=== PATIENT | female | born 1965 | race Caucasian/White ===

== ENCOUNTER 2016-07-07 13:32 | Inpatient (IN) | payer MEDICAID, OTHER ==
--- NOTE | 2016-07-07 14:54 | ED ---
Psych HPI - General Chief Complaint: Psychiatric Symptoms Stated Complaint: Mental Health Eval Time Seen by Provider: 07/07/16 13:48 Source: patient, family, RN notes reviewed Mode of arrival: ambulatory - History of Present Illness Initial Comments: This patient is a 50-year-old woman brought in by her mother to be evaluated for psychiatric issues. Patient's mother states that the patient has been telling her that everything in the house has been poisoned. She feels that she is in danger being there. Patient does deny suicidal or homicidal ideation. MD Complaint: other -: week(s) Associated Psychiatric Symptoms: delusions History of same: Yes Quality: getting worse Improves With: none Worsens With: none - Related Data Home Medications Medication Instructions Recorded Confirmed Albuterol Nebulized [Ventolin 2.5 mg INHALATION RT-QID PRN 11/23/13 07/08/16 Nebulized] Albuterol Sulfate [Ventolin HFA] 2 puff INHALATION RT-Q6H PRN 11/23/13 07/08/16 metFORMIN HCL [Glucophage] 500 mg PO DAILY 11/23/13 07/08/16 Artificial Tears-Hypromellose 1 drops BOTH EYES TID PRN 11/25/15 07/08/16 [Artificial Tear Drops] Ergocalciferol [Vitamin D2] 50,000 unit PO Q28D 11/25/15 07/08/16 ALPRAZolam [Xanax] 0.25 mg PO BID PRN 06/16/16 07/08/16 Atorvastatin [Lipitor] 40 mg PO HS 06/16/16 07/08/16 Beclomethasone Dipropionate [Qvar 2 puff INHALATION RT-BID 06/16/16 07/08/16 80 mcg] Levothyroxine Sodium [Synthroid] 100 mcg PO DAILY 06/16/16 07/08/16 amLODIPine [Norvasc] 2.5 mg PO DAILY 06/16/16 07/08/16 DULoxetine HCL [Cymbalta] 60 mg PO DAILY 06/27/16 07/08/16 Fluticasone Nasal [place] [Flonase 1 spray EA NOSTRIL DAILY PRN 06/27/16 07/08/16 Nasal [place]] Loratadine [Claritin] 10 mg PO DAILY PRN 06/27/16 07/08/16 QUEtiapine [SEROquel] 50 mg PO HS 07/07/16 07/08/16 Allergies Allergy/AdvReac Type Severity Reaction Status Date / Time ciprofloxacin HCl Allergy Unknown Verified 07/08/16 00:44 [From Cipro] prednisone Allergy Unknown Verified 07/08/16 00:44 sulfamethoxazole Allergy Unknown Verified 07/08/16 00:44 [From Bactrim] trimethoprim [From Bactrim] Allergy Unknown Verified 07/08/16 00:44 Review of Systems ROS Statement: Those systems with pertinent positive or pertinent negative responses have been documented in the HPI. ROS Other: All systems not noted in ROS Statement are negative. Constitutional: Denies: fever Respiratory: Denies: cough, dyspnea Cardiovascular: Denies: chest pain Gastrointestinal: Denies: abdominal pain, vomiting, diarrhea Genitourinary: Denies: dysuria Musculoskeletal: Denies: back pain Skin: Denies: rash Neurological: Denies: headache Psychiatric: Reports: other (Delusional thought content) Past Medical History Past Medical History: Asthma, Diabetes Mellitus, Hyperlipidemia, Hypertension History of Any Multi-Drug Resistant Organisms: None Reported Past Surgical History: Cholecystectomy, Hernia Repair, Hysterectomy Additional Past Surgical History / Comment(s): hiatal hernia Past Psychological History: Anxiety, Depression, Panic Disorder Smoking Status: Never smoker Past Alcohol Use History: None Reported Additional Past Alcohol Use History / Comment(s): pt does not use etoh or illicit drugs Past Drug Use History: None Reported General Exam Limitations: no limitations General appearance: alert, in no apparent distress Head exam: Present: atraumatic, normocephalic Eye exam: Present: normal appearance Respiratory exam: Present: normal lung sounds bilaterally. Absent: respiratory distress, wheezes, rales, rhonchi, stridor Cardiovascular Exam: Present: regular rate, normal rhythm, normal heart sounds. Absent: systolic murmur, diastolic murmur, rubs, gallop GI/Abdominal exam: Present: soft. Absent: tenderness, guarding, rebound Extremities exam: Absent: pedal edema, calf tenderness Neurological exam: Present: alert, normal gait Psychiatric exam: Present: normal affect, normal mood Skin exam: Present: warm, dry, intact, normal color. Absent: rash Course Vital Signs 07/07/16 13:44 Temperature 98.1 F Pulse Rate 99 Respiratory 18 Rate Blood Pressure 116/76 O2 Sat by Pulse 99 Oximetry Medical Decision Making - Lab Data Result diagrams: 07/07/16 18:28 07/07/16 18:28 Lab Results 07/07/16 07/07/16 Range/Units 18:28 18:28 WBC 13.6 H (3.8-10.6) k/uL RBC 4.37 (3.80-5.40) m/uL Hgb 12.3 (11.4-16.0) gm/dL Hct 38.3 (34.0-46.0) % MCV 87.6 (80.0-100.0) fL MCH 28.2 (25.0-35.0) pg MCHC 32.2 (31.0-37.0) g/dL RDW 13.3 (11.5-15.5) % Plt Count 381 (150-450) k/uL Neutrophils % 73 % Lymphocytes % 21 % Monocytes % 5 % Eosinophils % 1 % Basophils % 0 % Neutrophils # 9.9 H (1.3-7.7) k/uL Lymphocytes # 2.8 (1.0-4.8) k/uL Monocytes # 0.6 (0-1.0) k/uL Eosinophils # 0.1 (0-0.7) k/uL Basophils # 0.0 (0-0.2) k/uL Sodium 142 (137-145) mmol/L Potassium 4.9 (3.5-5.1) mmol/L Chloride 103 (98-107) mmol/L Carbon Dioxide 27 (22-30) mmol/L Anion Gap 12 mmol/L BUN 20 H (7-17) mg/dL Creatinine 1.00 (0.52-1.04) mg/dL Est GFR (MDRD) Af Amer >60 (>60 ml/min/1.73 sqM) Est GFR (MDRD) Non-Af 59 (>60 ml/min/1.73 sqM) Glucose 92 (74-99) mg/dL Calcium 11.2 H (8.4-10.2) mg/dL TSH 0.048 L (0.465-4.680) mIU/L Free T4 1.41 (0.78-2.19) ng/dL Disposition Clinical Impression: Psychosis, Hyperthyroidism Disposition: ADMITTED IP TO THIS [facility] Condition: Poor
[2016-07-07 18:38] LABS: Basophils % (A) 0 %; CH 28.4; CHCM 32.6; Eosinophils # (A) 0.1 k/uL (0-0.7); Eosinophils % (A) 1 %; HCT 38.3 % (34.0-46.0); HDW 2.49; HGB 12.3 gm/dL (11.4-16.0); Luc # (Auto) 0.14; Luc % (Auto) 1; Lymphocytes # (A) 2.8 k/uL (1.0-4.8); Lymphocytes % (A) 21 %; MCH 28.2 pg (25.0-35.0); MCHC 32.2 g/dL (31.0-37.0); MCV 87.6 fL (80.0-100.0); Monocytes # (A) 0.6 k/uL (0-1.0); Monocytes % (A) 5 %; Neutrophils # (A) 9.9 k/uL (1.3-7.7); Neutrophils % (A) 73 %; RBC 4.37 m/uL (3.80-5.40); RDW 13.3 % (11.5-15.5); WBC 13.6 k/uL (3.8-10.6); WBC (Perox) 12.78
[2016-07-07 19:10] LABS: Anion Gap 12 mmol/L; Blood Urea Nitrogen 20 mg/dL (7-17); Calcium 11.2 mg/dL (8.4-10.2); Carbon Dioxide 27 mmol/L (22-30); Chloride 103 mmol/L (98-107); Glucose 92 mg/dL (74-99); Non-African American GFR(MDRD) 59 (>60 ml/min/1.73 sqM); Potassium 4.9 mmol/L (3.5-5.1); Sodium 142 mmol/L (137-145)
[2016-07-07] MEDS ORDERED: ZIPRASIDONE 20 MG VIAL IM PRN (22:57)
[2016-07-07] MEDS ORDERED: MAG HYDROX/AL HYDROX/SIMETH 30 ML CUP PO PRN (22:57)
[2016-07-07] MEDS ORDERED: MAGNESIUM HYDROXIDE 2,400 MG/10 ML CUP PO PRN (22:57)
[2016-07-07] MEDS ORDERED: ACETAMINOPHEN TAB 325 MG TAB PO PRN (22:57)
[2016-07-07] MEDS ORDERED: LORazepam 1 MG TAB PO PRN (23:01)
[2016-07-07] MEDS ORDERED: ALBUTEROL NEBULIZED 2.5 MG/3 ML INHALATION PRN (23:40)
[2016-07-08] MEDS ORDERED: ALBUTEROL NEBULIZED 2.5 MG/3 ML INHALATION SCH (08:00)
[2016-07-08] MEDS: amLODIPine 2.5 MG TAB PO SCH (08:05)
[2016-07-08] MEDS: metFORMIN 500 MG TAB PO SCH (08:05)
[2016-07-08 09:31] LABS: Basophils % (A) 0 %; CH 27.6; CHCM 31.7; Eosinophils # (A) 0.1 k/uL (0-0.7); Eosinophils % (A) 0 %; HCT 38.6 % (34.0-46.0); HDW 2.43; HGB 12.2 gm/dL (11.4-16.0); Luc # (Auto) 0.26; Luc % (Auto) 2; Lymphocytes % (A) 14 %; MCH 27.7 pg (25.0-35.0); MCHC 31.6 g/dL (31.0-37.0); MCV 87.5 fL (80.0-100.0); Mean Platelet Volume 6.6; Monocytes # (A) 0.6 k/uL (0-1.0); Monocytes % (A) 4 %; Neutrophils # (A) 11.1 k/uL (1.3-7.7); Neutrophils % (A) 79 %; RBC 4.41 m/uL (3.80-5.40); RDW 13.1 % (11.5-15.5); WBC 14.1 k/uL (3.8-10.6)
[2016-07-08 09:35] LABS: ALT 44 U/L (9-52); AST 31 U/L (14-36); Alkaline Phosphatase 143 U/L (38-126); Anion Gap 19 mmol/L; Bilirubin, Delta 0.4 mg/dL (0.0-0.2); Blood Urea Nitrogen 20 mg/dL (7-17); Calcium 11.1 mg/dL (8.4-10.2); Carbon Dioxide 24 mmol/L (22-30); Chloride 102 mmol/L (98-107); Glucose 122 mg/dL (74-99); Non-African American GFR(MDRD) >60 (>60 ml/min/1.73 sqM); Potassium 4.1 mmol/L (3.5-5.1); Sodium 145 mmol/L (137-145); Total Bilirubin 0.8 mg/dL (0.2-1.3); Total Protein 8.3 g/dL (6.3-8.2)
--- NOTE | 2016-07-08 11:26 | P.HP ---
Psychiatric H&P - . History & Physical: Allergies Allergy/AdvReac Type Severity Reaction Status Date / Time ciprofloxacin HCl Allergy Unknown Verified 07/08/16 00:44 [From Cipro] prednisone Allergy Unknown Verified 07/08/16 00:44 sulfamethoxazole Allergy Unknown Verified 07/08/16 00:44 [From Bactrim] trimethoprim [From Bactrim] Allergy Unknown Verified 07/08/16 00:44 Vital Signs Temp 98.2 F 07/08/16 06:48 Pulse 108 H 07/08/16 08:13 Resp 16 07/08/16 08:13 BP 129/89 07/08/16 08:13 Pulse Ox 99 07/07/16 13:44 Laboratory Last Values WBC 14.1 k/uL (3.8-10.6) H 07/08/16 08:58 RBC 4.41 m/uL (3.80-5.40) 07/08/16 08:58 Hgb 12.2 gm/dL (11.4-16.0) 07/08/16 08:58 Hct 38.6 % (34.0-46.0) 07/08/16 08:58 MCV 87.5 fL (80.0-100.0) 07/08/16 08:58 MCH 27.7 pg (25.0-35.0) 07/08/16 08:58 MCHC 31.6 g/dL (31.0-37.0) 07/08/16 08:58 RDW 13.1 % (11.5-15.5) 07/08/16 08:58 Plt Count 434 k/uL (150-450) 07/08/16 08:58 Neutrophils % 79 % 07/08/16 08:58 Lymphocytes % 14 % 07/08/16 08:58 Monocytes % 4 % 07/08/16 08:58 Eosinophils % 0 % 07/08/16 08:58 Basophils % 0 % 07/08/16 08:58 Neutrophils # 11.1 k/uL (1.3-7.7) H 07/08/16 08:58 Lymphocytes # 2.0 k/uL (1.0-4.8) 07/08/16 08:58 Monocytes # 0.6 k/uL (0-1.0) 07/08/16 08:58 Eosinophils # 0.1 k/uL (0-0.7) 07/08/16 08:58 Basophils # 0.0 k/uL (0-0.2) 07/08/16 08:58 Sodium 145 mmol/L (137-145) 07/08/16 08:58 Potassium 4.1 mmol/L (3.5-5.1) 07/08/16 08:58 Chloride 102 mmol/L (98-107) 07/08/16 08:58 Carbon Dioxide 24 mmol/L (22-30) 07/08/16 08:58 Anion Gap 19 mmol/L 07/08/16 08:58 BUN 20 mg/dL (7-17) H 07/08/16 08:58 Creatinine 0.91 mg/dL (0.52-1.04) 07/08/16 08:58 Est GFR (MDRD) Af Amer >60 (>60 ml/min/1.73 sqM) 07/08/16 08:58 Est GFR (MDRD) Non-Af >60 (>60 ml/min/1.73 sqM) 07/08/16 08:58 Glucose 122 mg/dL (74-99) H 07/08/16 08:58 Calcium 11.1 mg/dL (8.4-10.2) H 07/08/16 08:58 Total Bilirubin 0.8 mg/dL (0.2-1.3) 07/08/16 08:58 Conjugated Bilirubin 0.0 mg/dL (0.0-0.3) 07/08/16 08:58 Unconjugated Bilirubin 0.4 mg/dL (0.0-1.1) 07/08/16 08:58 Delta Bilirubin 0.4 mg/dL (0.0-0.2) H 07/08/16 08:58 AST 31 U/L (14-36) 07/08/16 08:58 ALT 44 U/L (9-52) 07/08/16 08:58 Alkaline Phosphatase 143 U/L (38-126) H 07/08/16 08:58 Total Protein 8.3 g/dL (6.3-8.2) H 07/08/16 08:58 Albumin 4.7 g/dL (3.5-5.0) 07/08/16 08:58 TSH 0.052 mIU/L (0.465-4.680) L 07/08/16 08:58 Free T4 1.41 ng/dL (0.78-2.19) 07/07/16 18:28 07/08/16 10:45 Psychiatric admission notes. Identification data and reason for hospitalization. Gila craven is a 50-year-old white single female who was admitted to mental health unit following her evaluation in the emergency department where she was brought by her mother requesting psychiatric evaluation. According to mother patient has been telling that everything in the house has been poisoned and filed being in danger there. History of present illness. Information obtainable from the patient is somewhat limited as she seems to be guarded most of the time. She told me that she is here because her mother wanted her to be admitted, and also stated that she wanted to be away from home so that she can sort out things, but the family would want to go back home. Patient stated that she has been feeling quite depressed lately as she is lonely and has no children, , or family. On the other hand she states that she will never live with her mother and does not want to think about life without her mother. Though she was supposed to be under psychiatric care through [facility], decided not to go there anymore because she was upset with an employee there. When inquired about her mother's statement of poisoned and the house she did not want to discuss that not much of any psychiatric symptoms other than what she indicated. Patient stated that she is having no appetite and had been crying most of the time while at home feeling sad and depressed. On direct inquiry she did not indicate having any suicidal thoughts or plans. Past psychiatric history. Her records indicate that she was hospitalized here in 2007 for a psychotic breakdown. She had another admission in November 2013 she was quite depressed and suicidal. 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 Though she has been depressed on and off there is no history of any suicidal attempts. In the history of her admission of 2013 she seems to have showing significant erratic behavior over the breakup with a boyfriend. Substance abuse history. None Medical history. Patient has history of asthma, hyperlipidemia, hypertension, and diabetes mellitus. Also has history of hysterectomy and states that she is concerned that she cannot have any children because of that. Personal history. Patient is younger of 2 siblings, and has a sister 2 years older than her. 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 She lives with her mother with whom she seems to be pathologically attached. Parents got when she was 5 years old and though she did not have much to do with her father while growing up, missed became very much and he when he was around 50s. Though patient dated many people never trusted anybody enough to them. She was very much in love with one gentleman but broke with him when she found that he went on skinny dipping with another girl. Though in high school she was quite active and had many friends, she does not have any social life or friends now. 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 Patient is on Social Security income. Family history. Patient's mother has history of depression and was hospitalized here. So also her maternal aunt. One of her maternal uncle committed suicide. Patient is not aware of any other family history of psychiatric problem. ALLERGIES. Ciprofloxacin, penicillin, prednisone. And Bactrim. Current medications. Her home medications listed are metformin 500 mg daily, Norvasc 2.5 mg daily, Seroquel 50 mg at bedtime, Claritin 10 mg daily when necessary, Synthroid 100 g daily, Flonase nasal spray daily when necessary, with vitamin D to 50,000 unit daily 28 days, Cymbalta 60 mg daily, beclomethasone inhalation twice a day, Lipitor 40 mg at bedtime, albuterol inhalation every 6 hours when necessary and Xanax 0.25 mg twice a day when necessary. Mental status examination. Patient is an average built single female who appears older than her stated age she is completely edentulous, and though she has dentures seems to be not regularly using it. Patient was dressed in hospital gown and readily came for the evaluation, however appeared to be rather guarded. Her attention and concentration could be aroused and sustained for adequate length of time and patient maintained good eye contact. There was no significant psychomotor disturbance. Patient became quite tearful and crying when talking about her mother and of years of what she would do when her mother passes away and stated that she does not want to think about it at all. Does not speak spontaneously. However responds to questions relevantly when she does, at other times quite evasive and guarded. Speech is normal in rate and rhythm and volume. Thought process also fairly normal. Patient seems to have paranoid delusions. At one point she acknowledged that she has auditory hallucination and then later changed her mind and said "no", nor would want to talk about it. She is oriented to time place and person. Her memory functions has far as could be tested seem to be fairly intact as well as remote, and recent events. Did not want to participate in evaluation of immediate memory not general information. Appears to be somewhat limited in her insight and judgment. Intelligence. Probably below average. Next Strengths. Supportive mother and a place to live. Social Security income. Weaknesses. Long history of psychiatric problem. Dependent on mother. Noncompliant with treatment recommendations. Formulation. 50-year-old single white female currently on Social Security income with history of prior admissions for depression, being admitted as patient has been depressed as well as expressing paranoid ideation, and per patient she wanted to be away from home for a few days. Acknowledges that she wants treatment for depression. Diagnoses. [place] I. Rule out Bipolar 2 disorder with psychotic features. Major depressive disorder recurrent with psychotic features. [place] II. Dependent personality. [place] III. History of asthma, hyperlipidemia, hypertension, diabetes mellitus, and hypothyroidism. [place] IV. Moderate severity [place] V. 25. Treatment plans. Patient will be on a diabetic diet and will be on close observation for any unpredictable behavior. We'll have medical evaluation and follow-up as needed. Psychosocial history. And will see patient on a daily basis for ongoing evaluation and appropriate adjustment of medication as well as reality oriented supportive discussions. Encourage patient to participate in all milieu based treatment activities. She is currently on Tylenol, Maalox, and milk of magnesia on a when necessary basis and albuterol inhalation 4 times a day when necessary and Ativan by mouth 1 mg every 8 hours when necessary. For agitation or psychotic symptoms patient would be on Geodon 20 mg IM twice a day when necessary. Will continue her Cymbalta 60 mg daily and increase Seroquel to100 mg at at bedtime and Synthroid 100 g daily. She also will continue her metformin 500 mg daily and Norvasc 2.5 mg daily. Once stabilized psychiatrically patient will be advised as to need for continued outpatient care and recommend alternate plan as she does not want to go to [facility]. I'm not sure as to who has been prescribing her psychotropic medications. Prognosis. Fair with active treatment. 07/08/16 11:19
[2016-07-08 13:28] LABS: Appearance,Urine Cloudy (Clear); Bacteria,Urine Moderate /hpf; Bilirubin,Urine Negative (Negative); Glucose,Urine (UA) Negative (Negative); Ketones,Urine Negative (Negative); Leukocyte Esterase,Urine Large (Negative); Mucus,Urine Occasional /hpf; Nitrite,Urine Negative (Negative); PH, Urine 5.5 (5.0-8.0); Particle Count 4285; Protein,Urine Negative (Negative); RBC,Urine 4 /hpf (0-5); Specific Gravity,Urine 1.007 (1.001-1.035); Squamous Epithelial Cell,Urine 21 /hpf (0-4); UA Billing (MACRO vs. MICRO) MICRO; Urobilinogen,Urine <2.0 mg/dL (<2.0); WBC,Urine 26 /hpf (0-5)
[2016-07-08 13:37] LABS: Hemoglobin A1C 5.8 % (4.2-6.1)
[2016-07-08] MEDS: ALBUTEROL INHALER 60 PUFF/8 GM INHALER INHALATION PRN ×2 (13:59→18:56)
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
[2016-07-08] MEDS: ATORVASTATIN 40 MG TAB PO SCH (21:04)
[2016-07-09] MEDS: LEVOTHYROXINE 100 MCG TAB PO SCH (06:57)
[2016-07-09] MEDS: metFORMIN 500 MG TAB PO SCH (07:54)
[2016-07-09] MEDS: DULoxetine HCL 60 MG CAPSULE.DR PO SCH (09:13)
[2016-07-09] MEDS: amLODIPine 2.5 MG TAB PO SCH (09:13)
[2016-07-09] MEDS: ALBUTEROL INHALER 60 PUFF/8 GM INHALER INHALATION PRN (12:36)
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
[2016-07-09] MEDS: ATORVASTATIN 40 MG TAB PO SCH ×2 (22:38→22:40)
[2016-07-10] MEDS: LEVOTHYROXINE 100 MCG TAB PO SCH (06:21)
[2016-07-10] MEDS: metFORMIN 500 MG TAB PO SCH (09:27)
[2016-07-10] MEDS: amLODIPine 2.5 MG TAB PO SCH (09:27)
[2016-07-10 09:29] VITALS: RESP 16
[2016-07-10] MEDS: DULoxetine HCL 60 MG CAPSULE.DR PO SCH (10:50)
--- NOTE | 2016-07-10 14:06 | P.PN ---
Subjective Psychiatric progress notes. Patient who has expressed significant paranoid delusional thinking yesterday was started on Prolixin however I was informed that patient had refused to take all of her medications. When seen today she indicated that medications make her feel different and hence she did not want to. Explained to patient as to need for medication compliance and if she continues to refuse we may have to seek court order to ensure that she is taking her medications. Patient became rather tearful at this suggestions patient remains withdrawn and attempts to participate in certain group activities. Patient did not sleep very well last night. Mental status. Patient is an average built female with adequate grooming trends and dressed in her own clothes. Has some degree of psychomotor retardation. Comes readily for the evaluation and speaks in a low tone but does not show any abnormality in her speech or thought process other than being slow. Patient has paranoid delusions and her affect is relatively flat. Depressed and anxious mood. Limited in insight and judgment. Since the only medication available in liquid form being Haldol started 5 mg a.m. and 10 mg at bedtime. Objective - Vital Signs Vital signs: Vital Signs Temp 97.9 F 07/10/16 07:07 Pulse 91 07/10/16 11:40 Resp 16 07/10/16 11:40 BP 127/84 07/10/16 11:40 Pulse Ox 99 07/07/16 13:44 Intake & Output 07/09/16 07/10/16 07/10/16 18:59 06:59 18:59 Weight 68 kg - Labs CBC & Chem 7: 07/08/16 08:58 07/08/16 08:58 Labs: Microbiology - Last 24 Hours (Table) 07/09/16 11:52 Urine Culture - Final Urine,Clean Catch
[2016-07-10] MEDS: HALOPERIDOL ORAL SOLN 10 MG/5 ML CUP PO SCH (20:36)
[2016-07-10] MEDS: ATORVASTATIN 40 MG TAB PO SCH (20:36)
[2016-07-11 06:27] LABS: Glucose,Whole Blood 104 mg/dL (75-99)
[2016-07-11] MEDS: LEVOTHYROXINE 100 MCG TAB PO SCH (07:23)
[2016-07-11] MEDS: DULoxetine HCL 60 MG CAPSULE.DR PO SCH (08:08)
[2016-07-11] MEDS: metFORMIN 500 MG TAB PO SCH (08:08)
[2016-07-11] MEDS: HALOPERIDOL ORAL SOLN 10 MG/5 ML CUP PO SCH ×2 (08:08→20:51)
[2016-07-11] MEDS: BENZTROPINE MESYLATE 0.5 MG TAB PO SCH (08:08)
[2016-07-11] MEDS: amLODIPine 2.5 MG TAB PO SCH (08:08)
[2016-07-11] MEDS: ALBUTEROL INHALER 60 PUFF/8 GM INHALER INHALATION PRN ×4 (08:34→20:42)
[2016-07-11 11:52] LABS: Glucose,Whole Blood 97 mg/dL (75-99)
--- NOTE | 2016-07-11 15:18 | P.PN ---
Subjective Psychiatric progress notes. Patient after discussion with him yesterday decided to be compliant with medication and reports that she was able to sleep better and is feeling better today and without any adverse effects. Patient indicated that she was afraid that the medication would change her in some ways, however since he was feeling better decided to continue to take them. She had started attending the milieu based treatment activities and seems to be more appropriately responding. Also discussed with her the possible benefits of being on a long-acting injectable medication about which she had some questions and seemed to be willing though she is afraid of the pain it could cause according to her. Though her mother had brought the dentures she has not started using it yet. Mental status. Patient is said average built female who is dressed in her own clothes, but her grooming habits could be some degree better. Patient seemed to have an indifferent attitude about her looks and grooming. Patient comes readily for the evaluation and did not show any significant psychomotor retardation the disposition she had before. Attention and concentration aroused and sustained. Answers to questions relevantly, coherently but briefly. Acknowledge that her hallucinatory experiences have been improving, so also the paranoid thinking. Affect becoming more appropriate. Also seem to be having improved insight and judgment. Continue current treatment plans. Objective - Vital Signs Vital signs: Vital Signs Temp 98.2 F 07/11/16 06:42 Pulse 121 H 07/11/16 08:06 Resp 16 07/11/16 08:06 BP 111/72 07/11/16 08:06 Pulse Ox 99 07/07/16 13:44 - Labs CBC & Chem 7: 07/08/16 08:58 07/08/16 08:58 Labs: Abnormal Lab Results - Last 24 Hours (Table) 07/11/16 Range/Units 06:26 POC Glucose (mg/dL) 104 H (75-99) mg/dL Microbiology - Last 24 Hours (Table) 07/09/16 11:52 Urine Culture - Final Urine,Clean Catch
[2016-07-11] MEDS: ATORVASTATIN 40 MG TAB PO SCH (20:52)
[2016-07-12] MEDS: LEVOTHYROXINE 100 MCG TAB PO SCH (06:16)
[2016-07-12 06:49] LABS: Glucose,Whole Blood 85 mg/dL (75-99)
[2016-07-12] MEDS: DULoxetine HCL 60 MG CAPSULE.DR PO SCH (08:13)
[2016-07-12] MEDS: metFORMIN 500 MG TAB PO SCH (08:13)
[2016-07-12] MEDS: BENZTROPINE MESYLATE 0.5 MG TAB PO SCH (08:13)
[2016-07-12] MEDS: amLODIPine 2.5 MG TAB PO SCH (08:13)
[2016-07-12] MEDS: HALOPERIDOL ORAL SOLN 10 MG/5 ML CUP PO SCH ×2 (08:14→21:10)
[2016-07-12] MEDS: ALBUTEROL INHALER 60 PUFF/8 GM INHALER INHALATION PRN ×2 (10:59→19:01)
--- NOTE | 2016-07-12 16:26 | P.PN ---
Subjective Psychiatric progress notes. From a psychiatric point of view patient seems to be making a definitive improvement though she still shows tendency to be somewhat isolative. However she has been regular with her participation in treatment activities as well as compliance with medications. Patient is somewhat anxious to be home and acknowledges at times having some conflict with her mother. States that in future if it happens she would go and stay with sister for a couple of days. Discussed eating on Prolixin Decanoate which she agrees and will order this for tomorrow. Mental status examination. Patient's grooming habits still requires some improvement, however she readily comes for evaluation trusting her own clothes and maintaining reasonable eye contact. Somewhat slow in her activities. Speech and thought process not showing any significant abnormality other than they are some degree slow. Her paranoid delusions seem to have cleared affect becoming more appropriate. Denies any depression at present. Sleep has been good. Seems to have fair degree of insight as to need for treatment. Continue current treatment plans. Objective - Vital Signs Vital signs: Vital Signs Temp 98.2 F 07/12/16 06:27 Pulse 112 H 07/12/16 08:11 Resp 16 07/12/16 08:11 BP 115/65 07/12/16 08:11 Pulse Ox 99 07/07/16 13:44 - Labs CBC & Chem 7: 07/08/16 08:58 07/08/16 08:58
[2016-07-12] MEDS: ATORVASTATIN 40 MG TAB PO SCH (21:29)
[2016-07-13] MEDS: LEVOTHYROXINE 100 MCG TAB PO SCH (06:37)
[2016-07-13 06:44] VITALS: TEMP 98.1
[2016-07-13 06:48] LABS: Glucose,Whole Blood 85 mg/dL (75-99)
[2016-07-13] MEDS: amLODIPine 2.5 MG TAB PO SCH (08:15)
[2016-07-13] MEDS: BENZTROPINE MESYLATE 0.5 MG TAB PO SCH (08:15)
[2016-07-13] MEDS: DULoxetine HCL 60 MG CAPSULE.DR PO SCH (08:16)
[2016-07-13] MEDS: HALOPERIDOL ORAL SOLN 10 MG/5 ML CUP PO SCH (08:17)
[2016-07-13] MEDS: metFORMIN 500 MG TAB PO SCH (08:17)
[2016-07-13 08:21] VITALS: BP 113/71; PULSE 113
[2016-07-13] MEDS: HALOPERIDOL DECANOATE 50 MG/ML 1 ML VIAL IM STA ×2 (10:04→10:25)
--- NOTE | 2016-07-13 12:26 | P.DS ---
Providers Date of admission: 07/07/16 20:07 Attending physician: Kel Boone MD Psychiatric discharge summary. Identification data and reason for hospitalization. Gila craven a 50-year-old single white female admitted to mental health unit following her evaluation in the emergency department where she was brought by her mother requesting psychiatric evaluation and treatment per mother patient has been telling that everything in the house has been poisoned and afraid to be at home. Patient was on voluntary status. History of present illness and mental status at the time of admission please refer to the dictated admission notes. Admitting diagnoses. [place] I. Rule out bipolar 2 disorder with psychotic features. Major depressive disorder recurrent with psychotic features. [place] II dependent personality. [place] III. History of asthma, hyperlipidemia, hypertension, diabetes mellitus, and hypothyroidism. [place] IV. Moderate severity. [place] V. 25 Course during hospitalization. Patient was on a diabetic diet and was on close observation for any unpredictable behavior. Medical evaluation provided by Dr. Lamar and there was no additional diagnoses other than mentioned. Initially patient remained quite withdrawn and continued to have paranoid ideations though she felt safer being on the unit that at home. However patient refused to be on any medication claiming that it may make her feel different. Patient was advised as to the options of waiting for court adjudication or to be compliant with medication and she chose to be compliant. She was on Tylenol, Maalox, and milk of magnesia on a when necessary basis. IM Geodon 20 mg twice a day when necessary if agitated. She continued the following medication of Cymbalta 60 mg daily, Seroquel 100 mg at bedtime, and Synthroid 100 g daily. She was also on metformin 500 mg daily and Norvasc 2.5 mg daily. Also she was on Cogentin 0.5 mg daily, Lipitor 40 mg at bedtime, and Ventolin inhaler 4 times a day when necessary. In view of her continued paranoid trends and likelihood of noncompliance following discharge she was placed on Haldol 5 mg a.m. and 10 mg at bedtime which was subsequently changed to 10 mg at bedtime along with Ativan 0.5 mg at bedtime. Patient was on Claritin 10 mg daily on the outside this was continued on a when necessary basis. She was given IM Haldol Decanoate 50 mg and will continue this every 4 weeks. Patient seemed to have developed adequate degree of improvement becoming more appropriate and the delusions have cleared. Her depression also significantly improved and patient was scheduled for discharge for outpatient follow-up with [facility]. Mental status at the time of discharge. Patient is an average built single white female who is somewhat indifferent towards her grooming trends with uncombed hair and certain degree of isolation. She started using her dentures which seemed to make some difference in her appearance. Patient is cooperative in the sense she comes readily for the evaluation and maintains good eye contact and responds appropriately, all the same with certain degree of restriction of affect. Speech and thought process remains low. Paranoid delusions have cleared. No hallucinatory experience. Self-care, eating and sleeping habits improved. Patient is agreeable as to need for treatment and willing to be compliant and to that extent there is improvement in insight and judgment. Discharge diagnoses. [place] I. Major depressive disorder recurrent with psychotic features. [place] II. Dependent personality. [place] III. History of asthma, hyperlipidemia, hypertension, diabetes mellitus, and hypothyroidism. [place] IV. Moderate severity. [place] V. 40. Post hospital plan. Patient will be on diabetic diet and has appointment [facility] on[facility] and her discharge medications are. Albuterol inhaler 4 times a day when necessary Lipitor 40 mg at bedtime. Cogentin 0.5 mg daily. Cymbalta 60 mg daily. Haldol 10 mg at bedtime. Ativan 0.5 mg at bedtime. Synthroid 100 g daily. Claritin 10 mg daily when necessary. Norvasc 2.5 mg daily. Metformin 500 mg with breakfast daily. Prognosis. Fair with treatment. Risk assessment. Patient is free of any depressive feelings or psychotic symptoms and has not shown any dangerousness to self or others. Consults: 07/07/16 22:57 Consult Physician Routine Consulting Provider: Dale Lamar Consult Reason/Comments: mendical management Do you want consulting provider notified?: Yes, Notify in am Primary care physician: Dale Lamar Patient Condition at Discharge: Poor Plan - Discharge Summary New Discharge Prescriptions: Albuterol Inhaler [Ventolin Hfa Inhaler] 2 puff INHALATION RT-QID PRN #1 puff PRN Reason: Shortness Of Breath Or Wheezing Atorvastatin [Lipitor] 40 mg PO HS #30 tab Benztropine Mesylate [Cogentin] 0.5 mg PO DAILY #30 tab DULoxetine HCL [Cymbalta] 60 mg PO DAILY #30 capsule. Haloperidol [Haldol] 10 mg PO HS #60 tab LORazepam [Ativan] 0.5 mg PO HS #30 tab Levothyroxine Sodium [Synthroid] 100 mcg PO DAILY@0630 #30 tab Loratadine [Claritin] 10 mg PO DAILY PRN #30 tab PRN Reason: Allergy Symptoms amLODIPine [Norvasc] 2.5 mg PO DAILY #30 tab metFORMIN HCL [Glucophage] 500 mg PO W/BRKFST #30 tab Discharge Medication List Albuterol Nebulized [Ventolin Nebulized] 2.5 mg INHALATION RT-QID PRN 11/23/13 [ History] Albuterol Sulfate [Ventolin HFA] 2 puff INHALATION RT-Q6H PRN 11/23/13 [History] metFORMIN HCL [Glucophage] 500 mg PO DAILY 11/23/13 [History] Artificial Tears-Hypromellose [Artificial Tear Drops] 1 drops BOTH EYES TID PRN 11/25/15 [History] Ergocalciferol [Vitamin D2 (DRISDOL)] 50,000 unit PO Q28D 11/25/15 [History] Atorvastatin [Lipitor] 40 mg PO HS 06/16/16 [History] Beclomethasone Dipropionate [Qvar 80 mcg] 2 puff INHALATION RT-BID 06/16/16 [ History] Levothyroxine Sodium [Synthroid] 100 mcg PO DAILY 06/16/16 [History] amLODIPine [Norvasc] 2.5 mg PO DAILY 06/16/16 [History] DULoxetine HCL [Cymbalta] 60 mg PO DAILY 06/27/16 [History] Fluticasone Nasal [place] [Flonase Nasal [place]] 1 spray EA NOSTRIL DAILY PRN 06/27 [History] Albuterol Inhaler [Ventolin Hfa Inhaler] 2 puff INHALATION RT-QID PRN #1 puff [Rx] Atorvastatin [Lipitor] 40 mg PO HS #30 tab 07/13/16 [Rx] Benztropine Mesylate [Cogentin] 0.5 mg PO DAILY #30 tab 07/13/16 [Rx] DULoxetine HCL [Cymbalta] 60 mg PO DAILY #30 capsule. 07/13/16 [Rx] Haloperidol [Haldol] 10 mg PO HS #60 tab 07/13/16 [Rx] LORazepam [Ativan] 0.5 mg PO HS #30 tab 07/13/16 [Rx] Levothyroxine Sodium [Synthroid] 100 mcg PO DAILY@0630 #30 tab 07/13/16 [Rx] Loratadine [Claritin] 10 mg PO DAILY PRN #30 tab 07/13/16 [Rx] amLODIPine [Norvasc] 2.5 mg PO DAILY #30 tab 07/13/16 [Rx] metFORMIN HCL [Glucophage] 500 mg PO W/BRKFST #30 tab 07/13/16 [Rx] Follow up Appointment(s)/Referral(s): [facility] [Other] - 08/10/16 11:00 am (injection) Dale Lamar MD [Primary Care Provider] - 1 Week Patient Instructions/Handouts: Depression (DC), Suicide Prevention for Adults ( DC) Activity/Diet/Wound Care/Special Instructions: No alcohol or street drugs. Call the crisis line or your care provider if symptoms worsen Crisis line no. . Regular diet. Activity as tolerated.
[2016-07-13] MEDS ORDERED: LORazepam 0.5 MG TAB PO SCH (21:00)
[2016-07-13] MEDS ORDERED: HALOPERIDOL 5 MG TAB PO SCH (21:00)
== END 2016-07-13 12:50 | disposition home or self-care (01) | DRG 885 ==
LOC: EC 13:32 → 3MHU 20:07
PROVIDERS: ADMIT Psychiatry & Neurology Psychiatry; ATTEND Psychiatry & Neurology Psychiatry
DX: F33.3 Major depressive disorder, recurrent, severe with psychotic symptoms (principal); E11.9 Type 2 diabetes mellitus without complications; I10 Essential (primary) hypertension; E05.90 Thyrotoxicosis, unspecified without thyrotoxic crisis or storm; E78.5 Hyperlipidemia, unspecified; F41.0 Panic disorder [episodic paroxysmal anxiety]; J45.909 Unspecified asthma, uncomplicated; Z88.1 Allergy status to other antibiotic agents; Z88.2 Allergy status to sulfonamides; Z81.8 Family history of other mental and behavioral disorders
CPT/HCPCS: 36415; 80048; 80053; 80301; 81001; 81025; 82075; 82248; 83036; 84439; 84443; 85025; 87086; 94640; 99285

== ENCOUNTER 2016-10-23 09:27 | Emergency (ER) | payer OTHER ==
[2016-10-23 09:34] VITALS: PULSE 98; TEMP 97.1
[2016-10-23] MEDS ORDERED: ONDANSETRON ODT 4 MG TAB PO STA (09:53)
[2016-10-23] MEDS ORDERED: FAMOTIDINE 20 MG TAB PO STA (09:53)
--- NOTE | 2016-10-23 10:14 | ED ---
General Adult HPI - General Chief complaint: Recheck/Abnormal Lab/Rx Stated complaint: sick Time Seen by Provider: 10/23/16 09:35 Source: patient, RN notes reviewed Mode of arrival: ambulatory Limitations: no limitations - History of Present Illness Initial comments: 51-year-old female presents emergency Department chief complaint sinus congestion runny nose for the last 2 weeks. Patient states she stays a lot mild cough. Patient states she has a large amount of posterior drainage upsetting her stomach. She has no abdominal pain. Patient states that she's not taking any valq-voh-rrpqfeo cough and cold medications though she states she has seasonal ALLERGIES and which she normally should be taking something. Patient denies fever, chills, ear pain, headache or dizziness. Denies any neck pain or neck stiffness. Patient offers no other complaints. - Related Data Home Medications Medication Instructions Recorded Confirmed Albuterol Nebulized [Ventolin 2.5 mg INHALATION RT-QID PRN 11/23/13 10/23/16 Nebulized] Albuterol Sulfate [Ventolin HFA] 2 puff INHALATION RT-Q6H PRN 11/23/13 10/23/16 Ergocalciferol [Vitamin D2 50,000 unit PO Q28D 11/25/15 10/23/16 (DRISDOL)] Atorvastatin [Lipitor] 40 mg PO HS 06/16/16 10/23/16 Beclomethasone Dipropionate [Qvar 1 puff INHALATION RT-QID PRN 06/16/16 10/23/16 80 mcg] Levothyroxine Sodium [Synthroid] 100 mcg PO DAILY 06/16/16 10/23/16 amLODIPine [Norvasc] 2.5 mg PO DAILY 06/16/16 10/23/16 DULoxetine HCL [Cymbalta] 60 mg PO DAILY 06/27/16 10/23/16 Fluticasone Nasal [place] [Flonase 1 spray EA NOSTRIL DAILY PRN 06/27/16 10/23/16 Nasal [place]] Aspirin EC [Ecotrin Low Dose] 81 mg PO DAILY 10/23/16 10/23/16 Benztropine Mesylate [Cogentin] 1 mg PO BID 10/23/16 10/23/16 Fluticasone Nasal [place] [Flonase 1 spray EA NOSTRIL BID PRN 10/23/16 10/23/16 Nasal [place]] Ibuprofen [Motrin] 800 mg PO Q6H PRN 10/23/16 10/23/16 LORazepam [Ativan] 0.5 mg PO DAILY 10/23/16 10/23/16 Loperamide [Imodium] 2 - 4 mg PO QID PRN 10/23/16 10/23/16 Mupirocin 2% Oint [Bactroban 2% 1 applic TOPICAL TID PRN 10/23/16 10/23/16 Oint] Previous Rx's Medication Instructions Recorded Haloperidol [Haldol] 10 mg PO HS #60 tab 07/13/16 Loratadine [Claritin] 10 mg PO DAILY PRN #30 tab 07/13/16 metFORMIN HCL [Glucophage] 500 mg PO W/BRKFST #30 tab 07/13/16 Loratadine 10 mg PO DAILY #20 tablet 10/23/16 Ondansetron Odt [Zofran Odt] 4 mg PO Q8HR PRN #10 tab 10/23/16 Allergies Allergy/AdvReac Type Severity Reaction Status Date / Time ciprofloxacin HCl Allergy Unknown Verified 10/23/16 10:22 [From Cipro] prednisone Allergy Unknown Verified 10/23/16 10:22 sulfamethoxazole Allergy Unknown Verified 10/23/16 10:22 [From Bactrim] trimethoprim [From Bactrim] Allergy Unknown Verified 10/23/16 10:22 Review of Systems ROS Statement: Those systems with pertinent positive or pertinent negative responses have been documented in the HPI. ROS Other: All systems not noted in ROS Statement are negative. Past Medical History Past Medical History: Asthma, Diabetes Mellitus, Hyperlipidemia, Hypertension History of Any Multi-Drug Resistant Organisms: None Reported Past Surgical History: Cholecystectomy, Hernia Repair, Hysterectomy Additional Past Surgical History / Comment(s): hiatal hernia Past Psychological History: Anxiety, Depression, Panic Disorder Smoking Status: Never smoker Past Alcohol Use History: None Reported Additional Past Alcohol Use History / Comment(s): pt does not use etoh or illicit drugs Past Drug Use History: None Reported General Exam Limitations: no limitations General appearance: alert, in no apparent distress Head exam: Present: atraumatic, normocephalic, normal inspection Eye exam: Present: normal appearance, PERRL, EOMI. Absent: scleral icterus, conjunctival injection, periorbital swelling ENT exam: Present: mucous membranes moist, TM's normal bilaterally, normal external ear exam. Absent: normal oropharynx (Postnasal drainage) Neck exam: Present: normal inspection, full ROM. Absent: tenderness, meningismus, lymphadenopathy Respiratory exam: Present: normal lung sounds bilaterally. Absent: respiratory distress, wheezes, rales, rhonchi, stridor Cardiovascular Exam: Present: regular rate, normal rhythm, normal heart sounds. Absent: systolic murmur, diastolic murmur, rubs, gallop, clicks Skin exam: Present: warm, dry, intact, normal color. Absent: rash Course Vital Signs 10/23/16 09:31 Temperature 97.1 F L Pulse Rate 98 Respiratory 20 Rate Blood Pressure 128/80 O2 Sat by Pulse 100 Oximetry Medical Decision Making - Medical Decision Making 51-year-old female presented emergency department for congestion and postnasal drainage nausea. Patient does feel better after Zofran. Patient chest x-ray shows no acute abnormality. Patient's symptoms are of URI, ALLERGY. Patient be given loratadine. Patient has formally is at home. Patient also given Zofran for her nausea. Return parameters were discussed. Disposition Clinical Impression: Post-nasal drainage, URI (upper respiratory infection), Environmental allergies Disposition: HOME SELF-CARE Condition: Stable Instructions: Upper Respiratory Infection (ED) Additional Instructions: Please return to the Emergency Department if symptoms worsen or any other concerns. Prescriptions: Loratadine 10 mg PO DAILY #20 tablet Ondansetron Odt [Zofran Odt] 4 mg PO Q8HR PRN #10 tab PRN Reason: Nausea Time of Disposition: 11:12
--- NOTE | 2016-10-23 10:26 | XR ---
EXAMINATION TYPE: XR chest 2V DATE OF EXAM: 10/23/2016 10:04 AM COMPARISON: 06/27/2016 HISTORY: 51-year-old female with cough and chest pain TECHNIQUE: PA and lateral views FINDINGS: The cardiomediastinal silhouette, aorta, and pulmonary vasculature are within normal limits. Lungs an d pleural spaces are clear. IMPRESSION: No acute cardiopulmonary process.
[2016-10-23 11:21] VITALS: BP 143/84; RESP 16
== END 2016-10-23 11:21 | disposition home or self-care (01) ==
LOC: EC 09:27
DX: T78.49XA Other allergy, initial encounter (principal); J06.9 Acute upper respiratory infection, unspecified; R11.0 Nausea; J45.909 Unspecified asthma, uncomplicated; E11.9 Type 2 diabetes mellitus without complications; E78.5 Hyperlipidemia, unspecified; I10 Essential (primary) hypertension; F41.0 Panic disorder [episodic paroxysmal anxiety]; F32.9 Major depressive disorder, single episode, unspecified; Z79.82 Long term (current) use of aspirin; Z79.899 Other long term (current) drug therapy; Z88.1 Allergy status to other antibiotic agents; Z88.2 Allergy status to sulfonamides; Z88.8 Allergy status to other drugs, medicaments and biological substances
CPT/HCPCS: 71020; 99283

== ENCOUNTER 2016-10-24 19:06 | Emergency (ER) | payer OTHER ==
[2016-10-24] MEDS ORDERED: SODIUM CHLORIDE 0.9% 1,000 ML IV STA (20:35)
[2016-10-24] MEDS ORDERED: ONDANSETRON 4 MG/2 ML VIAL IVP STA (20:35)
[2016-10-24] MEDS ORDERED: FAMOTIDINE 20 MG/2 ML VIAL IV STA (20:36)
--- NOTE | 2016-10-24 20:59 | ED ---
General Adult HPI - General Chief complaint: Nausea/Vomiting/Diarrhea Stated complaint: HTN and vomiting Time Seen by Provider: 10/24/16 20:32 Source: patient, RN notes reviewed Mode of arrival: wheelchair Limitations: no limitations - History of Present Illness Initial comments: Patient 51-year-old female who presents emergency room today with a chief complaint of symptoms of nausea vomiting, diarrhea over the last 4 days. Does admit that symptoms started 4 days ago. Denies any signs of blood in the stool or emesis. Mrs. some abdominal cramping. She denies any other associated symptoms or complaints. Patient denies any recent fever, chills, shortness of breath, chest pain, back pain, numbness or tingling, dysuria or hematuria, constipation, headaches or visual changes, or any other complaints. - Related Data Home Medications Medication Instructions Recorded Confirmed Albuterol Nebulized [Ventolin 2.5 mg INHALATION RT-QID PRN 11/23/13 10/24/16 Nebulized] Albuterol Sulfate [Ventolin HFA] 2 puff INHALATION RT-Q6H PRN 11/23/13 10/24/16 Ergocalciferol [Vitamin D2 50,000 unit PO Q28D 11/25/15 10/24/16 (DRISDOL)] Atorvastatin [Lipitor] 40 mg PO HS 06/16/16 10/24/16 Beclomethasone Dipropionate [Qvar 1 puff INHALATION RT-QID PRN 06/16/16 10/24/16 80 mcg] Levothyroxine Sodium [Synthroid] 100 mcg PO DAILY 06/16/16 10/24/16 amLODIPine [Norvasc] 2.5 mg PO DAILY 06/16/16 10/24/16 DULoxetine HCL [Cymbalta] 60 mg PO DAILY 06/27/16 10/24/16 Aspirin EC [Ecotrin Low Dose] 81 mg PO DAILY 10/23/16 10/24/16 Benztropine Mesylate [Cogentin] 1 mg PO BID 10/23/16 10/24/16 Fluticasone Nasal [place] [Flonase 1 spray EA NOSTRIL BID PRN 10/23/16 10/24/16 Nasal [place]] Ibuprofen [Motrin] 800 mg PO Q6H PRN 10/23/16 10/24/16 LORazepam [Ativan] 0.5 mg PO DAILY 10/23/16 10/24/16 Loperamide [Imodium] 2 - 4 mg PO QID PRN 10/23/16 10/24/16 Mupirocin 2% Oint [Bactroban 2% 1 applic TOPICAL TID PRN 10/23/16 10/24/16 Oint] Previous Rx's Medication Instructions Recorded Haloperidol [Haldol] 10 mg PO HS #60 tab 07/13/16 Loratadine [Claritin] 10 mg PO DAILY PRN #30 tab 07/13/16 metFORMIN HCL [Glucophage] 500 mg PO W/BRKFST #30 tab 07/13/16 Loratadine 10 mg PO DAILY #20 tablet 10/23/16 Ondansetron Odt [Zofran Odt] 4 mg PO Q8HR PRN #10 tab 10/23/16 Nitrofurantoin Monohyd/M-Cryst 100 mg PO Q12HR #14 cap 10/24/16 [Macrobid] Allergies Allergy/AdvReac Type Severity Reaction Status Date / Time ciprofloxacin HCl Allergy Unknown Verified 10/24/16 20:53 [From Cipro] prednisone Allergy Unknown Verified 10/24/16 20:53 sulfamethoxazole Allergy Unknown Verified 10/24/16 20:53 [From Bactrim] trimethoprim [From Bactrim] Allergy Unknown Verified 10/24/16 20:53 Review of Systems ROS Statement: Those systems with pertinent positive or pertinent negative responses have been documented in the HPI. ROS Other: All systems not noted in ROS Statement are negative. Past Medical History Past Medical History: Asthma, Diabetes Mellitus, Hyperlipidemia, Hypertension History of Any Multi-Drug Resistant Organisms: None Reported Past Surgical History: Cholecystectomy, Hernia Repair, Hysterectomy Additional Past Surgical History / Comment(s): hiatal hernia Past Psychological History: Anxiety, Depression, Panic Disorder Smoking Status: Never smoker Past Alcohol Use History: None Reported Additional Past Alcohol Use History / Comment(s): pt does not use etoh or illicit drugs Past Drug Use History: None Reported General Exam - General Exam Comments Initial Comments: General: The patient is awake and alert, in no distress, and does not appear acutely ill. Eye: Pupils are equal, round and reactive to light, extra-ocular movements are intact. No nystagmus. There is normal conjunctiva bilaterally. No signs of icterus. Ears, nose, mouth and throat: There are moist mucous membranes and no oral lesions. Neck: The neck is supple, there is no tenderness or JVD. Cardiovascular: There is a regular rate and rhythm. No murmur, rub or gallop is appreciated. Respiratory: Lungs are clear to auscultation, respirations are non-labored, breath sounds are equal. No wheezes, stridor, rales, or rhonchi. Gastrointestinal: Soft, non-distended, non-tender abdomen without masses or organomegaly noted. There is no rebound or guarding present. No CVA tenderness. Bowel sounds are unremarkable. Musculoskeletal: Normal ROM, no tenderness. Strength 5/5. Sensation intact. Pulses equal bilaterally 2+. Neurological: A&O x 3. CN II-XII intact, There are no obvious motor or sensory deficits. Coordination appears grossly intact. Speech is normal. Skin: Skin is warm and dry and no rashes or lesions are noted. Psychiatric: Cooperative, appropriate mood & affect, normal judgment. Limitations: no limitations Course Vital Signs 10/24/16 19:51 Temperature 98.0 F Pulse Rate 110 H Respiratory 20 Rate Blood Pressure 136/81 O2 Sat by Pulse 99 Oximetry Medical Decision Making - Medical Decision Making Patient labs reviewed and does show 14,000 white count. Patient's urinalysis shows possible urinary tract infection. CT of the abdomen was performed to rule out kidney stone. No evidence of kidney stones or any other acute abnormalities. Patient does have symptoms of nausea vomiting diarrhea for the past 4 days. No sign of diverticulitis or colitis or any other information of the colon. Patient will be started on antibiotics cover for urinary tract infection by his follow-up family doctor next 2 days. Does have nausea medication at home that she can use. Advised to increase oral fluids. Advised return if any symptoms increase or worsen. Patient and family member at the bedside state understanding and are in agreement. - Lab Data Result diagrams: 10/24/16 20:55 10/24/16 20:55 Lab Results 10/24/16 10/24/16 10/24/16 Range/Units 20:55 20:55 21:00 WBC 14.7 H (3.8-10.6) k/uL RBC 4.93 (3.80-5.40) m/uL Hgb 14.0 (11.4-16.0) gm/dL Hct 43.0 (34.0-46.0) % MCV 87.3 (80.0-100.0) fL MCH 28.5 (25.0-35.0) pg MCHC 32.6 (31.0-37.0) g/dL RDW 13.9 (11.5-15.5) % Plt Count 375 (150-450) k/uL Neutrophils % 89 % Lymphocytes % 5 % Monocytes % 4 % Eosinophils % 0 % Basophils % 0 % Neutrophils # 13.1 H (1.3-7.7) k/uL Lymphocytes # 0.8 L (1.0-4.8) k/uL Monocytes # 0.6 (0-1.0) k/uL Eosinophils # 0.1 (0-0.7) k/uL Basophils # 0.0 (0-0.2) k/uL Sodium 141 (137-145) mmol/L Potassium 3.9 (3.5-5.1) mmol/L Chloride 101 (98-107) mmol/L Carbon Dioxide 24 (22-30) mmol/L Anion Gap 16 mmol/L BUN 16 (7-17) mg/dL Creatinine 0.89 (0.52-1.04) mg/dL Est GFR (MDRD) Af Amer >60 (>60 ml/min/1.73 sqM) Est GFR (MDRD) Non-Af >60 (>60 ml/min/1.73 sqM) Glucose 167 H (74-99) mg/dL Calcium 11.4 H (8.4-10.2) mg/dL Total Bilirubin 0.8 (0.2-1.3) mg/dL AST 24 (14-36) U/L ALT 26 (9-52) U/L Alkaline Phosphatase 148 H (38-126) U/L Total Protein 8.8 H (6.3-8.2) g/dL Albumin 4.8 (3.5-5.0) g/dL Amylase 69 (30-110) U/L Lipase 80 (23-300) U/L Urine Color Yellow Urine Appearance Cloudy H (Clear) Urine pH 5.5 (5.0-8.0) Ur Specific [place] 1.030 (1.001-1.035) Urine Protein 1+ H (Negative) Urine Glucose (UA) Negative (Negative) Urine Ketones Trace H (Negative) Urine Blood Negative (Negative) Urine Nitrite Negative (Negative) Urine Bilirubin Negative (Negative) Urine Urobilinogen <2.0 (<2.0) mg/dL Ur Leukocyte Esterase Moderate H (Negative) Urine RBC 3 (0-5) /hpf Urine WBC 19 H (0-5) /hpf Ur Squamous Epith Cells 8 H (0-4) /hpf Calcium Oxalate Crystal Many H (None) /hpf Amorphous Sediment Few H (None) /hpf Urine Bacteria Occasional H (None) /hpf Hyaline Casts 1 (0-2) /lpf Urine Mucus Few H (None) /hpf Disposition Clinical Impression: UTI (urinary tract infection), Nausea & vomiting Disposition: HOME SELF-CARE Condition: Good Instructions: Acute Nausea and Vomiting (ED) Additional Instructions: Please use medication as discussed. Please follow-up with family doctor in the next 2 days of symptoms have not improved. Please return to emergency room if the symptoms increase or worsen or for any other concerns. Prescriptions: Nitrofurantoin Monohyd/M-Cryst [Macrobid] 100 mg PO Q12HR #14 cap Time of Disposition: 22:20
[2016-10-24 21:11] LABS: Basophils % (A) 0 %; CH 28.2; CHCM 32.5; Eosinophils # (A) 0.1 k/uL (0-0.7); Eosinophils % (A) 0 %; Luc # (Auto) 0.12; Luc % (Auto) 1; Lymphocytes # (A) 0.8 k/uL (1.0-4.8); Lymphocytes % (A) 5 %; MCH 28.5 pg (25.0-35.0); MCHC 32.6 g/dL (31.0-37.0); MCV 87.3 fL (80.0-100.0); Mean Platelet Volume 6.4; Monocytes # (A) 0.6 k/uL (0-1.0); Monocytes % (A) 4 %; Neutrophils # (A) 13.1 k/uL (1.3-7.7); Neutrophils % (A) 89 %; RBC 4.93 m/uL (3.80-5.40); RDW 13.9 % (11.5-15.5); WBC 14.7 k/uL (3.8-10.6); WBC (Perox) 15.15
[2016-10-24 21:30] LABS: Amorphous Sediment,Urine Few /hpf; Appearance,Urine Cloudy (Clear); Bacteria,Urine Occasional /hpf; Bilirubin,Urine Negative (Negative); Calcium Oxalate Crystals,Urine Many /hpf; Glucose,Urine (UA) Negative (Negative); Ketones,Urine Trace (Negative); Leukocyte Esterase,Urine Moderate (Negative); Mucus,Urine Few /hpf; Nitrite,Urine Negative (Negative); PH, Urine 5.5 (5.0-8.0); Particle Count 7579; Protein,Urine 1+ (Negative); RBC,Urine 3 /hpf (0-5); Squamous Epithelial Cell,Urine 8 /hpf (0-4); UA Billing (MACRO vs. MICRO) MICRO; Urobilinogen,Urine <2.0 mg/dL (<2.0); WBC,Urine 19 /hpf (0-5)
[2016-10-24 21:30] LABS: ALT 26 U/L (9-52); AST 24 U/L (14-36); Alkaline Phosphatase 148 U/L (38-126); Amylase 69 U/L (30-110); Anion Gap 16 mmol/L; Blood Urea Nitrogen 16 mg/dL (7-17); Calcium 11.4 mg/dL (8.4-10.2); Carbon Dioxide 24 mmol/L (22-30); Chloride 101 mmol/L (98-107); Glucose 167 mg/dL (74-99); Non-African American GFR(MDRD) >60 (>60 ml/min/1.73 sqM); Potassium 3.9 mmol/L (3.5-5.1); Sodium 141 mmol/L (137-145); Total Bilirubin 0.8 mg/dL (0.2-1.3); Total Protein 8.8 g/dL (6.3-8.2)
--- NOTE | 2016-10-24 21:31 | XR ---
EXAMINATION TYPE: XR KUB DATE OF EXAM: 10/24/2016 9:23 PM COMPARISON: 08/02/2013 HISTORY: Nausea and vomiting TECHNIQUE: 2 views FINDINGS: There is no sign of intestinal obstruction or pneumoperitoneum. Fecal pattern is normal. Th ere are clips from cholecystectomy. Lung bases are clear. There are no pathologic calcifications over the kidneys. IMPRESSION: Nonacute abdomen. No change.
--- NOTE | 2016-10-24 22:12 | CT ---
EXAMINATION TYPE: CT abdomen pelvis wo con DATE OF EXAM: 10/24/2016 10:01 PM COMPARISON: NONE HISTORY: Generalized abdominal pain with nausea. CT DLP: 241.60 mGycm Automated exposure control for dose reduction was used. TECHNIQUE: Helical acquisition of images was performed from the lung bases through the pelvis. FINDINGS: Lung bases are clear. There is no pleural effusion. Liver spleen pancreas appear normal. There are clips from cholecystectomy. Bile ducts are not dilated . There is no adrenal mass. Kidneys have normal size and contour. There is no hydronephrosis. Ureters are not dilated. There is no retroperitoneal adenopathy. There is no ascites. There is no evidence o f a pelvic mass. There is spondylosis in the lumbar spine with narrowing at L5-S1 disc space. I see n o focal bone destruction. I see no intestinal wall thickening. There are no dilated loops. There is n o sign of appendicitis. IMPRESSION: NEGATIVE CT SCAN OF THE ABDOMEN AND PELVIS. I DO NOT SEE A CAUSE FOR THE ABDOMINAL PAIN.
[2016-10-24 22:31] VITALS: BP 159/76; PULSE 89; RESP 18; TEMP 98.2
== END 2016-10-24 22:59 | disposition home or self-care (01) ==
LOC: EC 19:06
DX: N39.0 Urinary tract infection, site not specified (principal); R11.2 Nausea with vomiting, unspecified; R19.7 Diarrhea, unspecified; R10.9 Unspecified abdominal pain; E11.9 Type 2 diabetes mellitus without complications; E78.5 Hyperlipidemia, unspecified; I10 Essential (primary) hypertension; F32.9 Major depressive disorder, single episode, unspecified; F41.9 Anxiety disorder, unspecified; F41.0 Panic disorder [episodic paroxysmal anxiety]; Z79.82 Long term (current) use of aspirin; Z79.899 Other long term (current) drug therapy
CPT/HCPCS: 36415; 80053; 82150; 83690; 85025; 81001; 74000; 74176; 99284; 96374; 96375; 96361 ×2; J2405

== ENCOUNTER → 2016-11-03 | Outpatient (CLI) | payer OTHER ==
--- NOTE | 2016-11-03 12:15 | FL ---
EXAMINATION TYPE: FL UGI air w esophagus DATE OF EXAM: 11/03/2016 11:47 AM COMPARISON: CT abdomen pelvis October 24, 2016. HISTORY: Dysphasia and gastroesophageal reflux per order. Symptoms of food getting stuck over last se veral weeks with vomiting. History of Sam fundoplication surgery years ago. TECHNIQUE: A single contrast UGI study is performed. A total of 1.6 minutes of fluoroscopic time is utilized during procedure. Crystals cannot be given due to history of Sam fundoplication. FINDINGS: Folder Machine image of the abdomen shows overall nonobstructive bowel gas pattern. Cholecystectomy clips are redemonstrated. The esophagus shows satisfactory motility and emptying into the stomach. No evidence of recurrent hi atal hernia or stricture noted. The stomach shows satisfactory peristalsis and fold for single contrast study. No evidence of any in traluminal mass. Single episode of gastroesophageal reflux was seen during real time performance of t his study. The duodenal bulb, sweep, and proximal small bowel loops are unremarkable. IMPRESSION: No recurrent hiatal hernia. Single episode of gastroesophageal reflux identified otherwis e unremarkable study.
== END ==
LOC: RADFLWHC 10:39
PROVIDERS: ATTEND Surgery
DX: K21.9 Gastro-esophageal reflux disease without esophagitis (principal)
CPT/HCPCS: 74246

== ENCOUNTER 2016-11-08 10:55 | Day surgery (SDC) | payer OTHER ==
[~2016-11-08 10:55] MED LIST: LACTATED RINGERS 1,000 ML IV SCH; LIDOCAINE 1% 20 ML VIAL (10MG/ML) FOR IV START INTRADERMA PRN
[2016-11-08 12:24] VITALS: RESP 16; TEMP 98.4
[2016-11-08] MEDS ORDERED: DEXTROSE 50%-WATER 50 ML SYRINGE IVP ONE ×2 (12:48→13:45)
[2016-11-08 13:08] LABS: Glucose,Whole Blood 75 mg/dL (75-99)
[2016-11-08] MEDS ORDERED: PROPOFOL 10 MG/ML 20 ML VIAL IV ONE (13:12)
[2016-11-08] MEDS ORDERED: LIDOCAINE 1% INJ 10MG/ML (20 ML MDV) ONE (13:12)
--- NOTE | 2016-11-08 13:24 | P.GSHP ---
History of Present Illness H&P Date: 11/08/16 Chief Complaint: Dysphagia This a 51-year-old female sent central dysphagia. Patient presents today for EGD. - Constitutional Constitutional: Reports as per HPI Past Medical History Past Medical History: Asthma, Diabetes Mellitus, Hyperlipidemia, Hypertension Additional Past Medical History / Comment(s): ON ANTIBIOTICS FOR UTI FROM History of Any Multi-Drug Resistant Organisms: None Reported Past Surgical History: Cholecystectomy, Hernia Repair, Hysterectomy Additional Past Surgical History / Comment(s): hiatal hernia Past Anesthesia/Blood Transfusion Reactions: Motion Sickness Past Psychological History: Anxiety, Depression, Panic Disorder Smoking Status: Never smoker Past Alcohol Use History: None Reported Additional Past Alcohol Use History / Comment(s): pt does not use etoh or illicit drugs Past Drug Use History: None Reported - Past Family History Father Family Medical History: Cancer Medications and Allergies Home Medications Medication Instructions Recorded Confirmed Type Albuterol Nebulized [Ventolin 2.5 mg INHALATION RT-QID PRN 11/23/13 11/08/16 History Nebulized] Albuterol Sulfate [Ventolin HFA] 2 puff INHALATION RT-Q6H PRN 11/23/13 11/08/16 History Ergocalciferol [Vitamin D2 50,000 unit PO Q28D 11/25/15 11/08/16 History (DRISDOL)] Atorvastatin [Lipitor] 40 mg PO HS 06/16/16 11/08/16 History Beclomethasone Dipropionate [Qvar 1 puff INHALATION RT-QID PRN 06/16/16 History 80 mcg] Levothyroxine Sodium [Synthroid] 100 mcg PO DAILY 06/16/16 11/08/16 History amLODIPine [Norvasc] 2.5 mg PO DAILY 06/16/16 11/08/16 History Aspirin EC [Ecotrin Low Dose] 81 mg PO DAILY 10/23/16 11/08/16 History Fluticasone Nasal [place] [Flonase 1 spray EA NOSTRIL BID PRN 10/23/16 11/08/16 History Nasal [place]] LORazepam [Ativan] 0.5 mg PO DAILY 10/23/16 11/08/16 History Loperamide [Imodium] 2 - 4 mg PO QID PRN 10/23/16 11/08/16 History Allergies Allergy/AdvReac Type Severity Reaction Status Date / Time ciprofloxacin HCl Allergy PT CAN'T Verified 11/08/16 12:24 [From Cipro] REMEMBER REACTION prednisone Allergy PT CAN'T Verified 11/08/16 12:24 REMEMBER REACTION sulfamethoxazole Allergy PT CAN'T Verified 11/08/16 12:24 [From Bactrim] REMEMBER REACTION trimethoprim [From Bactrim] Allergy PT CAN'T Verified 11/08/16 12:24 REMEMBER REACTION Surgical - Exam Vital Signs Temp Pulse Resp BP Pulse Ox 98.4 F 91 16 136/75 100 11/08/16 12:23 11/08/16 12:23 11/08/16 12:23 11/08/16 12:23 11/08/16 12:23 - General well developed, no distress - Eyes PERRL - ENT normal pinna - Neck no masses - Respiratory normal expansion - Cardiovascular Rhythm: regular - Abdomen Abdomen: soft Assessment and Plan Plan: Dysphagia. We'll perform EGD.
--- NOTE | 2016-11-08 13:29 | P.OP ---
Date of Procedure: 11/08/16 Preoperative Diagnosis: Dysphagia Postoperative Diagnosis: Redness No evidence of hiatal hernia Procedure(s) Performed: EGD Anesthesia: MAC Surgeon: Kemar Beth Pathology: other (Antrum) Condition: stable Disposition: PACU Description of Procedure: The patient's placed on the endoscopy table in the lateral position. She received IV sedation. The gastroscope some placed oropharynx and passed in the esophagus and into the stomach. The scope was then placed through the pylorus. The first and second portion duodenum appeared normal. The scope was then brought back the antrum this. Mildly inflamed. A biopsies was performed. The scope was then retroflexed and the remainder of the stomach appeared normal. The GE junction was at 40 cm. There is no evidence of a hiatal hernia. The distal esophagus appeared normal. The proximal esophagus appeared normal. Scope was withdrawn for patient.
[2016-11-08 13:52] LABS: Glucose,Whole Blood 79 mg/dL (75-99)
[2016-11-08 14:09] VITALS: BP 126/59; PULSE 91
[2016-11-08 14:17] LABS: Glucose,Whole Blood 148 mg/dL (75-99)
== END 2016-11-08 14:33 | disposition home or self-care (01) ==
LOC: ORWHC2ENDO 10:55
PROVIDERS: ATTEND Surgery
DX: K29.50 Unspecified chronic gastritis without bleeding (principal); R13.10 Dysphagia, unspecified; J45.909 Unspecified asthma, uncomplicated; E11.9 Type 2 diabetes mellitus without complications; Z79.84 Long term (current) use of oral hypoglycemic drugs; E78.5 Hyperlipidemia, unspecified; I10 Essential (primary) hypertension; F41.9 Anxiety disorder, unspecified; F32.9 Major depressive disorder, single episode, unspecified; F41.0 Panic disorder [episodic paroxysmal anxiety]; Z79.82 Long term (current) use of aspirin; Z79.51 Long term (current) use of inhaled steroids; Z79.899 Other long term (current) drug therapy; Z88.6 Allergy status to analgesic agent; Z88.2 Allergy status to sulfonamides; Z88.8 Allergy status to other drugs, medicaments and biological substances
CPT/HCPCS: 88305; 88342; 43239; J2001; J2704

== ENCOUNTER 2024-11-07 11:45 | Inpatient (IN) | payer OTHER ==
--- NOTE | 2024-11-07 11:59 | ED ---
General Adult HPI - General Chief complaint: Neuro Symptoms/Deficit Stated complaint: stroke like symptoms Time Seen by Provider: 11/07/24 11:51 Source: patient, family, RN notes reviewed Mode of arrival: wheelchair Limitations: no limitations - History of Present Illness Initial comments: Patient is a 59-year-old female with concerns with right-sided weakness. Onset of symptoms was 2 days ago. Symptoms have been persistent since that time. Patient has weakness of the face, right arm and right leg. Patient has also had some speech problems. No headache. No confusion. - Related Data Home Medications Medication Instructions Recorded Confirmed ARIPiprazole [Abilify] 10 mg PO DAILY 11/07/24 11/07/24 Atorvastatin [Lipitor] 80 mg PO HS 11/07/24 11/07/24 FLUoxetine HCL [PROzac] 20 mg PO DAILY 11/07/24 11/07/24 Levothyroxine Sodium [Synthroid] 88 mcg PO DAILY 11/07/24 11/07/24 Primidone 50 mg PO BID 11/07/24 11/07/24 amLODIPine [Norvasc] 10 mg PO DAILY 11/07/24 11/07/24 metFORMIN HCL [Glucophage] 500 mg PO DAILY 11/07/24 11/07/24 Allergies Allergy/AdvReac Type Severity Reaction Status Date / Time ciprofloxacin HCl Allergy PT CAN'T Verified 11/07/24 13:28 [From Cipro] REMEMBER REACTION prednisone Allergy PT CAN'T Verified 11/07/24 13:28 REMEMBER REACTION sulfamethoxazole Allergy PT CAN'T Verified 11/07/24 13:28 [From Bactrim] REMEMBER REACTION trimethoprim [From Bactrim] Allergy PT CAN'T Verified 11/07/24 13:28 REMEMBER REACTION Review of Systems ROS Statement: Those systems with pertinent positive or pertinent negative responses have been documented in the HPI. ROS Other: All systems not noted in ROS Statement are negative. Constitutional: Denies: fever Eyes: Denies: eye pain ENT: Denies: ear pain Respiratory: Denies: dyspnea Cardiovascular: Denies: chest pain Neurological: Reports: as per HPI, weakness. Denies: headache Past Medical History Past Medical History: Asthma, Diabetes Mellitus, Hyperlipidemia, Hypertension Additional Past Medical History / Comment(s): ON ANTIBIOTICS FOR UTI FROM 10/24/16 History of Any Multi-Drug Resistant Organisms: None Reported Past Surgical History: Cholecystectomy, Hernia Repair, Hysterectomy Additional Past Surgical History / Comment(s): hiatal hernia Past Anesthesia/Blood Transfusion Reactions: Motion Sickness Past Psychological History: Anxiety, Depression, Panic Disorder Smoking Status: Never smoker Past Alcohol Use History: None Reported Past Drug Use History: None Reported - Past Family History Father Family Medical History: Cancer General Exam Limitations: no limitations General appearance: alert, in no apparent distress Head exam: Present: atraumatic Eye exam: Present: normal appearance, PERRL, EOMI ENT exam: Present: normal oropharynx Neck exam: Present: normal inspection Respiratory exam: Present: normal lung sounds bilaterally Cardiovascular Exam: Present: regular rate, normal rhythm GI/Abdominal exam: Present: soft. Absent: tenderness Extremities exam: Present: normal inspection Neurological exam: Present: alert Expanded Neurological exam: Present: other (Patient does have slurred speech) Patient oriented to: Present: person, place. Absent: time (Patient and family both state this is normal) Cranial nerves: EOM's Intact: Normal, Facial Palsy with Forehead Movement: Abnormal Right (Mild right facial droop. Forehead not affected) Sensory exam: Upper Extremity Light Touch: Normal, Lower Extremity Light Touch: Normal Motor strength exam: RUE: 4, LUE: 5, RLE: 4, LLE: 5 Eye Response: (4) open spontaneously Motor Response: (6) obeys commands Verbal Response: (5) oriented Psychiatric exam: Present: normal affect, normal mood Skin exam: Present: normal color Course Vital Signs 11/07/24 11/07/24 11:46 11:57 Temperature 97.9 F Pulse Rate 102 H 92 Respiratory 18 16 Rate Blood Pressure 153/91 154/96 O2 Sat by Pulse 98 100 Oximetry EKG Findings - EKG Results: EKG: interpreted by ERMD (Left axis.), sinus rhythm, normal QRS, normal ST/T Medical Decision Making - Medical Decision Making Was pt. sent in by a medical professional or institution (, PA, VEHICLE SAFETY INSPECTOR, urgent care, hospital, or long term...) When possible be specific @ -No Did you speak to anyone other than the patient for history (EMS, parent, family, police, friend...)? What history was obtained from this source @ -Family is present and helps provide history as patient is somewhat a poor historian Did you review nursing and triage notes (agree or disagree)? Why? @ -I reviewed and agree with nursing and triage notes Were old charts reviewed (outside hosp., previous admission, EMS record, old EKG, old radiological studies, urgent care reports/EKG's, long term records)? Report findings @ -No old charts were reviewed Differential Diagnosis (chest pain, altered mental status, abdominal pain women, abdominal pain men, vaginal bleeding, weakness, fever, dyspnea, syncope, headache, dizziness, GI bleed, back pain, seizure, CVA, palpatations, mental health, musculoskeletal)? @ -Differential Weakness: Hypoglycemia, shock, sepsis, hyponatremia, anemia, infection, OK, ETOH, adverse medicine reaction, overdose, stroke, this is not meant to be an all-inclusive list. EKG interpreted by me (3pts min.). @ -As above X-rays interpreted by me (1pt min.). @ -Chest x-ray without acute abnormality CT interpreted by me (1pt min.). @ -CT scan of the brain shows chronic changes, no acute abnormality U/S interpreted by me (1pt. min.). @ -None done What testing was considered but not performed or refused? (CT, X-rays, U/S, labs)? Why? @ -None What meds were considered but not given or refused? Why? @ -Patient not considered candidate for thrombolytics secondary to onset of symptoms greater than 4.5 hours. Risks have been felt to outweigh the benefits Did you discuss the management of the patient with other professionals (professionals i.e. , PA, VEHICLE SAFETY INSPECTOR, lab, RT, psych nurse, elementary school social worker, affirmative action officer, teacher, medical corps officer, mental health case manager)? Give summary @ -Dr. Lamar notified for admission of his patient Was smoking cessation discussed for >3mins.? @ -No Was critical care preformed (if so, how long)? @ -No Were there social determinants of health that impacted care today? How? (Homelessness, low income, unemployed, alcoholism, drug addiction, tr ansportation, low edu. Level, literacy, decrease access to med. care, halfway, rehab)? @ -No Was there de-escalation of care discussed even if they declined (Discuss DNR or withdrawal of care, Hospice)? DNR status @ -No What co-morbidities impacted this encounter? (DM, HTN, Smoking, COPD, CAD, Cancer, CVA, ARF, Chemo, Hep., AIDS, mental health diagnosis, sleep apnea, morbid obesity)? @ -None Was patient admitted / discharged? Hospital course, mention meds given and route, prescriptions, significant lab abnormalities, going to OR and other pertinent info. @ -Patient presents with 2 days right sided deficits. Clinical concern for CVA. Head CT unremarkable. Patient will be admitted with neuro consult. Patient reevaluated. Patient and family updated. Admission orders written. Undiagnosed new problem with uncertain prognosis? @ -No Drug Therapy requiring intensive monitoring for toxicity (Heparin, Nitro, Insulin, Cardizem)? @ -No Were any procedures done? @ -No Diagnosis/symptom? @ -CVA Acute, or Chronic, or Acute on Chronic? @ -Acute Uncomplicated (without systemic symptoms) or Complicated (systemic symptoms)? @ -Default Side effects of treatment? @ -No Exacerbation, Progression, or Severe Exacerbation? @ -No Poses a threat to life or bodily function? How? (Chest pain, USA, OK, pneumonia, PE, COPD, DKA, ARF, appy, cholecystitis, CVA, Diverticulitis, Homicidal, Suicid al, threat to staff... and all critical care pts) @ -Threat to neurological function - Lab Data Result diagrams: 11/07/24 12:01 11/07/24 12:01 Lab Results 11/07/24 11/07/24 11/07/24 Range/Units 12:01 12:01 12:01 WBC 11.96 H (4.50-10.00) 10*3/uL RBC 4.63 (4.10-5.20) 10*6/uL Hgb 13.4 (12.0-15.0) g/dL Hct 40.8 (37.2-46.3) % MCV 88.1 (80.0-97.0) fL MCH 28.9 (27.0-32.0) pg MCHC 32.8 (32.0-37.0) g/dL Plt Count 469 H (140-440) 10*3/uL MPV 9.5 (9.5-12.2) fL Immature Gran % (Auto) 0.3 % Neutrophils % 69.2 % Lymphocytes % 24.2 % Monocytes % 5.3 % Eosinophils % 0.7 % Basophils % 0.3 % Immature Gran # 0.03 (0.00-0.04) 10*3/uL Neutrophils # 8.29 H (1.80-7.70) 10*3/uL Lymphocytes # 2.89 (0.90-5.00) 10*3/uL Monocytes # 0.63 (0.20-1.00) 10*3/uL Eosinophils # 0.08 (0.04-0.35) 10*3/uL Basophils # 0.04 (0.00-0.10) 10*3/uL PT 9.6 L (10.0-12.5) sec INR 0.8 (<1.2) APTT 21.4 L (22.0-30.0) sec Sodium 141 (137-145) mmol/L Potassium 4.1 (3.5-5.1) mmol/L Chloride 106 (98-107) mmol/L Carbon Dioxide 23 (22-30) mmol/L Anion Gap 12 mmol/L BUN 16 (7-17) mg/dL Creatinine 0.97 (0.52-1.04) mg/dL Est GFR (CKD-EPI)AfAm 75 (>60 ml/min/1.73 sqM) Est GFR (CKD-EPI)NonAf 65 (>60 ml/min/1.73 sqM) Glucose 112 H (74-99) mg/dL Calcium 12.1 H (8.4-10.2) mg/dL Total Bilirubin 0.6 (0.2-1.3) mg/dL AST 21 (14-36) U/L ALT 17 (4-34) U/L Alkaline Phosphatase 144 H (38-126) U/L Creatine Kinase 64 (30-135) U/L Total Protein 8.4 H (6.3-8.2) g/dL Albumin 5.1 H (3.5-5.0) g/dL Disposition Clinical Impression: Cerebrovascular accident (CVA) Disposition: ADMITTED IP TO THIS HOSP Is patient prescribed a controlled substance at d/c from ED?: No Time of Disposition: 13:16
--- NOTE | 2024-11-07 12:44 | XR ---
EXAMINATION TYPE: XR chest 2V DATE OF EXAM: 11/07/2024 12:39 PM COMPARISON: 10/23/2016 CLINICAL INDICATION: Female, 59 years old with history of altered mental status: Shortness of breath TECHNIQUE: XR chest 2V views of the chest are obtained. FINDINGS: Scattered senescent parenchymal changes noted. No evidence for infiltrate. No evidence for atelectasis. Heart size is stable. Mediastinal structures are stable and grossly unremarkable. No evidence for hilar prominence. Degenerative changes dorsal spine. IMPRESSION: 1. No evidence for acute pulmonary disease. [facility], , 11/07/2024 12:42 PM
--- NOTE | 2024-11-07 13:07 | CT ---
EXAMINATION TYPE: CT brain wo con DATE OF EXAM: 11/07/2024 12:53 PM COMPARISON: 11/25/2015 CLINICAL INDICATION: Female, 59 years old with history of Neuro deficit, acute, stroke suspected, Sonu ro deficit, acute, stroke suspected, weakness TECHNIQUE: Examination was done in axial plane without intravenous contrast. Coronal and sagittal r econstructions performed. CT DLP: 1107.2 mGycm, Automated exposure control for dose reduction was used. FINDINGS: There is no evidence of acute intracranial hemorrhage, acute ischemic changes, mass, mass-effect, or extra-axial fluid collection. There is no effacement of cerebral sulci or basal subarachnoid cister ns. There is no hydrocephalus. There is no midline shift. Mosley-white matter distinction is preserv ed. Moderate patchy white matter hypodensities in both cerebral hemispheres especially in the deep white matter regions. Rightward nasal septal deviation. Paranasal sinuses and mastoid air cells are pneumatized. Orbits and globes are intact. IMPRESSION: Moderate patchy burden of chronic small vessel ischemic disease. No acute intracranial abnormality se en. If concern for subtle acute ischemia, consider follow-up MRI. [facility], , 11/07/2024 1:05 PM
[2024-11-07 13:09] LABS: Basophils # (A) 0.04 10*3/uL (0.00-0.10); Basophils % (A) 0.3 %; Eosinophils # (A) 0.08 10*3/uL (0.04-0.35); Eosinophils % (A) 0.7 %; HCT 40.8 % (37.2-46.3); HGB 13.4 g/dL (12.0-15.0); Lymphocytes # (A) 2.89 10*3/uL (0.90-5.00); Lymphocytes % (A) 24.2 %; MCH 28.9 pg (27.0-32.0); MCHC 32.8 g/dL (32.0-37.0); MCV 88.1 fL (80.0-97.0); Mean Platelet Volume 9.5 fL (9.5-12.2); Monocytes # (A) 0.63 10*3/uL (0.20-1.00); Monocytes % (A) 5.3 %; Neutrophils # (A) 8.29 10*3/uL (1.80-7.70); Neutrophils % (A) 69.2 %; Platelet Count 469 10*3/uL (140-440); RBC 4.63 10*6/uL (4.10-5.20); RDW 12.6 % (11.5-14.5); WBC 11.96 10*3/uL (4.50-10.00)
[2024-11-07 13:24] LABS: ALT 17 U/L (4-34); AST 21 U/L (14-36); African American GFR (CKD) 75 (>60 ml/min/1.73 sqM); Albumin 5.1 g/dL (3.5-5.0); Alkaline Phosphatase 144 U/L (38-126); Anion Gap 12 mmol/L; Blood Urea Nitrogen 16 mg/dL (7-17); Calcium 12.1 mg/dL (8.4-10.2); Carbon Dioxide 23 mmol/L (22-30); Chloride 106 mmol/L (98-107); Creatine Kinase 64 U/L (30-135); Glucose 112 mg/dL (74-99); Non-African American GFR(CKD) 65 (>60 ml/min/1.73 sqM); Potassium 4.1 mmol/L (3.5-5.1); Sodium 141 mmol/L (137-145); Total Bilirubin 0.6 mg/dL (0.2-1.3); Total Protein 8.4 g/dL (6.3-8.2)
[2024-11-07 13:28] LABS: INR 0.8 (<1.2); Partial Thromboplastin Time 21.4 sec (22.0-30.0); Prothrombin Time 9.6 sec (10.0-12.5)
[2024-11-07] MEDS: ASPIRIN 325 MG TAB PO STA (14:39)
[2024-11-07] MEDS: SODIUM CHLORIDE 0.9% 1,000 ML IV SCH (14:41)
--- NOTE | 2024-11-07 15:20 | US ---
EXAMINATION TYPE: US carotid duplex BILAT DATE OF EXAM: 11/07/2024 COMPARISON: NONE CLINICAL INDICATION: Female, 59 years old with history of Stenosis; Weakness TECHNIQUE: Grayscale, color Doppler and spectral Doppler evaluation of the bilateral carotid systems and vertebral arteries. Indirect Doppler criteria was utilized. FINDINGS: EXAM MEASUREMENTS: RIGHT: Peak Systolic Velocity (PSV) cm/sec ----- Right CCA: 95.5 ----- Right ICA: 136 ----- Right ECA: 96.7 ICA/CCA ratio: 1.4 RIGHT: End Diastole cm/sec ----- Right CCA: 22.7 ----- Right ICA: 29.5 ----- Right ECA: 2.5 LEFT: Peak Systolic Velocity (PSV) cm/sec ----- Left CCA: 90.7 ----- Left ICA: 110 ----- Left ECA: 72.9 ICA/CCA ratio: 1.2 LEFT: End Diastole cm/sec ----- Left CCA: 23.0 ----- Left ICA: 29.8 ----- Left ECA: 10.3 VERTEBRALS (direction of flow): Right Vertebral: Antegrade Left Vertebral: Antegrade Rhythm: Normal DUPLICATION SPECIALIST NOTES: No significant velocity elevations Color Doppler imaging shows patency with blood flow throughout the carotid artery. Spectral waveforms are within normal limits. IMPRESSION: No hemodynamically significant internal carotid artery stenosis on either side. Criteria for Assigning % of Stenosis / Diameter reduction (Estimation based on the indirect measurements of the internal carotid artery velocities (ICA PSV). 1. Normal (no stenosis)=ICA PSV < 180 cm/s: ratio < 2.0: ICA EDV<40 cm/s. 2. Less than 50% stenosis=ICA PSV < 180 cm/s: ratio < 2.0: ICA EDV<40 cm/s. 3. 50 to 69% stenosis=ICA PSV of 180 to 230 cm/s: ration 2.0 ? 4.0: ICA EDV 40-100 cm/s. PSV 125-180 cm/sec and ICA/CCA PSV Ratio ? 2.0 is also consistent with 50-69% stenosis 4. Greater than 70% stenosis to near occlusion= ICA PSV > 230 cm/s: ratio > 4.0: ICA EDV > 100 cm/s. 5. Near occlusion= ICA PSV velocities may be low or undetectable: variable ratio and ICA EDV. 6. Total occlusion=unable to detect flow. [facility], , 11/07/2024 3:17 PM
--- NOTE | 2024-11-07 17:17 | CA ---
Transthoracic Echo Report Name: Gila Malin Age: 59 Gender: F : 1965 Exam Date: 11/07/2024 14:11 Exam Location: [facility] Ht (in): 66 Wt (lb): 154 Ordering Physician: Albert Stevens DO Attending/Referring Phys: Mold Closer Angeles Capone RDCS Procedure CPT: Indications: Thrombus Cardiac Hx: Technical Quality: Good Contrast 1: Agitated Saline Total Dose (mL): 7 Contrast 2: Total Dose (mL): MEASUREMENTS (Male / Female) Normal Values 2D ECHO LV Diastolic Diameter PLAX 4.4 cm 4.2 - 5.9 / 3.9 - 5.3 cm LV Systolic Diameter PLAX 3.1 cm IVS Diastolic Thickness 0.9 cm 0.6 - 1.0 / 0.6 - 0.9 cm LVPW Diastolic Thickness 0.9 cm 0.6 - 1.0 / 0.6 - 0.9 cm LV Relative Wall Thickness 0.4 RV Internal Dim ED PLAX 2.8 cm LA Systolic Diameter LX 3.5 cm 3.0 - 4.0 / 2.7 - 3.8 cm LV Diastolic Volume MOD 4C 78.6 cm??? LV Systolic Volume MOD 4C 36.8 cm??? LV Ejection Fraction MOD 4C 53.2 % LV Cardiac Index MOD 4C 1727.6 cm???/min???m??? LV Diastolic Length 4C 8.2 cm LV Systolic Length 4C 6.6 cm LV Diastolic Volume MOD 2C 92.3 cm??? LV Systolic Volume MOD 2C 38.5 cm??? LV Ejection Fraction MOD 2C 58.2 % LV Cardiac Index MOD 2C 2222.2 cm???/min???m??? LV Diastolic Length 2C 7.6 cm LV Systolic Length 2C 6.1 cm LA Volume 38.4 cm??? 18 - 58 / 22 - 52 cm??? LA Volume Index 21.2 cm???/m??? 16 - 28 cm???/m??? M-MODE Aortic Root Diameter MM 2.8 cm AV Cusp Separation MM 1.7 cm DOPPLER AV Peak Velocity 230.7 cm/s AV Peak Gradient 21.3 mmHg AV Mean Velocity 165.4 cm/s AV Mean Gradient 12.0 mmHg AV Velocity Time Integral 53.4 cm LVOT Peak Velocity 114.1 cm/s LVOT Peak Gradient 5.2 mmHg LVOT Velocity Time Integral 27.3 cm MV Area PHT 4.9 cm??? Mitral E Point Velocity 111.7 cm/s Mitral A Point Velocity 139.2 cm/s Mitral E to A Ratio 0.8 MV Deceleration Time 153.9 ms TR Peak Velocity 143.9 cm/s TR Peak Gradient 8.3 mmHg Right Ventricular Systolic Press 13.3 mmHg FINDINGS Left Ventricle Left ventricular ejection fraction is estimated at 55-60 %. Left ventricular cavity size normal. Left ventricular wall thickness normal. Normal left ventricular wall motion. Right Ventricle Normal right ventricular size. Right ventricular systolic pressure within normal limits. Right Atrium Normal right atrial size. No right atrial thrombus or mass seen. Negative agitated saline bubble study for right to left shunt. Left Atrium Normal left atrial size. No left atrial thrombus or mass present. Mitral Valve Structurally normal mitral valve. No evidence for mitral valve prolapse. No mitral stenosis. Trace to mild mitral regurgitation. Aortic Valve Trileaflet aortic valve. Gradient across AOV . Mean gradient 12 mmHg Tricuspid Valve Structurally normal tricuspid valve. Mild tricuspid regurgitation. Pulmonic Valve Structurally normal pulmonic valve. No pulmonic regurgitation. Pericardium No pericardial effusion. Aorta Normal size aortic root and proximal ascending aorta. CONCLUSIONS Left ventricular ejection fraction 55 to 60% RVSP 13 Trace to mild mitral regurgitation Mild aortic stenosis Mild tricuspid regurgitation Previewed by: Dr. Jhonathan Tripathi DO (Electronically Signed) Final Date: 07 Nov 2024 17:16
[2024-11-07 20:01] LABS: Glucose,Whole Blood 97 mg/dL (70-110)
[2024-11-07] MEDS: ATORVASTATIN 80 MG TAB PO SCH (20:24)
[2024-11-07] MEDS: PRIMIDONE 50 MG TAB PO SCH (20:24)
[2024-11-08 06:06] LABS: Glucose,Whole Blood 85 mg/dL (70-110)
[2024-11-08] MEDS: LEVOTHYROXINE 88 MCG TAB PO SCH (06:29)
[2024-11-08] MEDS: ARIPiprazole 10 MG TAB PO SCH (08:09)
[2024-11-08] MEDS: amLODIPine 10 MG TAB PO SCH (08:09)
[2024-11-08] MEDS: ASPIRIN 325 MG TAB PO SCH (08:09)
[2024-11-08] MEDS: metFORMIN 500 MG TAB PO SCH (08:09)
[2024-11-08] MEDS: FLUoxetine HCL 20 MG CAP PO SCH (08:09)
[2024-11-08 10:21] LABS: Chol/HDL Ratio 3.03 Ratio; LDL Cholesterol,Calculated 66.7 mg/dL (0.0-131.0)
--- NOTE | 2024-11-08 10:31 | P.HPIM ---
History of Present Illness This is a pleasant 59 years old female with past medical history of multiple medical problems as below Presents because of slurred speech and right arm and right leg weakness that started yesterday and there was concerns of right facial droop. Today patient sitting up in chair fully awake and oriented, slightly lethargic she is has mild to moderate slurred speech patient states is improved to some extent, patient cannot communicate and tell what she wants. Also she states that her right arm and leg weakness are improved to great extent but not 100% compared to admission Other than that she denies any specific GI/ symptoms. No chest pain or dyspnea. She denies smoking alcohol or illicit drugs. She is afebrile blood pressure stable Labs showing mild leukocytosis 11.9 well other labs are unremarkable CBC, BMP, LFT, INR. Ejection fraction is 55 to 60%. CT of the brain is negative for acute process EKG showing sinus rhythm at 67 with no significant axis ST's T changes Chest x-ray showed no acute cardiopulmonary process Carotid duplex showed minimal atherosclerotic disease Patient currently started on aspirin 325 mg and normal saline 100 mL/h. Review of Systems Review of systems CONSTITUTIONAL: No fever, no malaise, no fatigue. HEENT: No recent visual problems or hearing problems. Denied any sore throat. CARDIOVASCULAR: No orthopnea, PND, no palpitations, no syncope. PULMONARY: No shortness of breath, no cough, no hemoptysis. GASTROINTESTINAL: No diarrhea, no nausea, no vomiting, no abdominal pain. Normoactive bowel sounds. NEUROLOGICAL: No headaches, no weakness, no numbness. HEMATOLOGICAL: Denies any bleeding or petechiae. GENITOURINARY: Denies any burning micturition, frequency, or urgency. MUSCULOSKELETAL/RHEUMATOLOGICAL: Denies any joint pain, swelling, or any muscle pain. ENDOCRINE: Denies any polyuria or polydipsia. Past Medical History Past Medical History: Asthma, Diabetes Mellitus, Hyperlipidemia, Hypertension Additional Past Medical History / Comment(s): ON ANTIBIOTICS FOR UTI FROM 10/07 02/22 History of Any Multi-Drug Resistant Organisms: None Reported Past Surgical History: Cholecystectomy, Hernia Repair, Hysterectomy Additional Past Surgical History / Comment(s): hiatal hernia Past Anesthesia/Blood Transfusion Reactions: Motion Sickness Past Psychological History: Anxiety, Depression, Panic Disorder Smoking Status: Never smoker Past Alcohol Use History: None Reported Additional Past Alcohol Use History / Comment(s): pt does not use etoh or illicit drugs Past Drug Use History: None Reported - Past Family History Father Family Medical History: Cancer Medications and Allergies Home Medications Medication Instructions Recorded Confirmed Type ARIPiprazole [Abilify] 10 mg PO DAILY 11/07/24 11/07/24 History Atorvastatin [Lipitor] 80 mg PO HS 11/07/24 11/07/24 History FLUoxetine HCL [PROzac] 20 mg PO DAILY 11/07/24 11/07/24 History Levothyroxine Sodium [Synthroid] 88 mcg PO DAILY 11/07/24 11/07/24 History Primidone 50 mg PO BID 11/07/24 11/07/24 History amLODIPine [Norvasc] 10 mg PO DAILY 11/07/24 11/07/24 History metFORMIN HCL [Glucophage] 500 mg PO DAILY 11/07/24 11/07/24 History Allergies Allergy/AdvReac Type Severity Reaction Status Date / Time ciprofloxacin HCl Allergy PT CAN'T Verified 11/07/24 13:28 [From Cipro] REMEMBER REACTION prednisone Allergy PT CAN'T Verified 11/07/24 13:28 REMEMBER REACTION sulfamethoxazole Allergy PT CAN'T Verified 11/07/24 13:28 [From Bactrim] REMEMBER REACTION trimethoprim [From Bactrim] Allergy PT CAN'T Verified 11/07/24 13:28 REMEMBER REACTION Physical Exam Vitals: Vital Signs Temp Pulse Pulse Resp BP BP Pulse Ox 11/08/24 08:00 97.7 F 72 16 126/79 99 11/08/24 04:00 66 14 124/68 98 11/08/24 02:00 78 16 11/08/24 00:00 97.7 F 67 14 123/76 98 11/07/24 20:00 78 16 125/76 99 11/07/24 18:37 98.8 F 76 14 150/83 99 11/07/24 18:15 81 18 153/85 99 11/07/24 16:09 76 18 140/79 99 11/07/24 14:38 78 20 144/80 100 11/07/24 11:57 92 16 154/96 100 11/07/24 11:46 97.9 F 102 H 18 153/91 98 Intake and Output 11/07/24 11/08/24 11/08/24 22:59 06:59 14:59 Intake Total 360 Output Total 400 600 Balance -40 -600 Intake: Oral 360 Output: Urine 400 600 Other: # Voids 1 2 Weight 69.853 kg 64.8 kg GENERAL: The patient is alert and oriented x3, not in any acute distress. Well developed, well nourished. HEENT: Pupils are round and equally reacting to light. EOMI. No scleral icterus. No conjunctival pallor. Normocephalic, atraumatic. No pharyngeal erythema. No thyromegaly. CARDIOVASCULAR: S1 and S2 present. No murmurs, rubs, or gallops. PULMONARY: Chest is clear to auscultation, no wheezing , no crackles. ABDOMEN: Soft, nontender, nondistended, normoactive bowel sounds. No palpable organomegaly. MUSCULOSKELETAL: No joint swelling or deformity. EXTREMITIES: No cyanosis, clubbing, or pedal edema. -NEUROLOGICAL: Gross neurological examination cranial nerves are grossly intact. Except for speech slurred speech and deviation of the mouth to the left side. She has weakness on the right arm and right leg compared to the left side. Meningeal signs absent SKIN: No rashes. no petechiae. Results CBC & Chem 7: 11/07/24 12:01 11/07/24 12:01 Labs: Abnormal Lab Results - Last 24 Hours (Table) 11/07/24 11/07/24 11/07/24 Range/Units 12:01 12:01 12:01 WBC 11.96 H (4.50-10.00) 10*3/uL Plt Count 469 H (140-440) 10*3/uL Neutrophils # 8.29 H (1.80-7.70) 10*3/uL PT 9.6 L (10.0-12.5) sec APTT 21.4 L (22.0-30.0) sec Glucose 112 H (74-99) mg/dL Calcium 12.1 H (8.4-10.2) mg/dL Alkaline Phosphatase 144 H (38-126) U/L Total Protein 8.4 H (6.3-8.2) g/dL Albumin 5.1 H (3.5-5.0) g/dL Triglycerides (0.00-149.00) mg/dL VLDL Cholesterol, Calc (5.00-40.00) mg/dL 11/07/24 Range/Units 12:01 WBC (4.50-10.00) 10*3/uL Plt Count (140-440) 10*3/uL Neutrophils # (1.80-7.70) 10*3/uL PT (10.0-12.5) sec APTT (22.0-30.0) sec Glucose (74-99) mg/dL Calcium (8.4-10.2) mg/dL Alkaline Phosphatase (38-126) U/L Total Protein (6.3-8.2) g/dL Albumin (3.5-5.0) g/dL Triglycerides 259.00 H (0.00-149.00) mg/dL VLDL Cholesterol, Calc 51.80 H (5.00-40.00) mg/dL Thrombosis Risk Factor Assmnt - Choose All That Apply Any of the Below Risk Factors Present?: Yes Each Factor Represents 1 point: Age 41-60 years Other Risk Factors: No Other congenital or acquired thrombophilia - If yes, enter type in comment: No Thrombosis Risk Factor Assessment Total Risk Factor Score: 1 Thrombosis Risk Factor Assessment Level: Low Risk Assessment and Plan Assessment: Acute CVA with slurred speech and right hemiparesis Diabetes mellitus Hypertension Hyperlipidemia Leukocytosis Plan: Continue with aspirin Continue gentle hydration Neurology team consult Labs and medication were reviewed.. Continue same treatment. Continue with symptomatic treatment. Resume home medication. Monitor lytes and vitals. DVT and GI prophylaxis. Further recommendations depends on the clinical course of the patient DVT prophylaxis: Subcutaneous heparin GI Prophylaxis: Pepcid PT/OT: Pending Prognosis is guarded
[2024-11-08 12:01] LABS: Glucose,Whole Blood 106 mg/dL (70-110)
--- NOTE | 2024-11-08 13:08 | P.CNNES ---
History of Present Illness Consult date: 11/08/24 Requesting physician: Albert Stevens Reason for Consult: CVA History of Present Illness: Patient is a 59-year-old left-handed female with history of hypertension, diabetes, came to the hospital yesterday at 11:45 AM. With strokelike symptoms. Patient states her symptoms started 3 days prior to arrival with slurred speech and numbness of the right arm and weakness. There was no symptoms related to the leg. No problems with balance or walking. She admitted to having some right facial droop but no vision changes, any headache or dizziness. She stayed home. The day of admission, she spoke to her coworker, who noticed some speech difficulty therefore brought her to the hospital. Vital signs on arrival blood pressure 153/91, pulse rate 102, temperature 97.9. Blood test shows WBC 11.96, hemoglobin normal, platelets 469. PT PTT normal, CMP normal. Calcium 12.1. EKG showed sinus rhythm chest x-ray showed no evidence for acute cardiopulmonary disease. CT head moderate patchy burden of chronic small vessel ischemic disease. No acute intracranial abnormality seen. If concern for subacute ischemia, consider follow-up MRI. Home medications include amlodipine, Abilify 10 mg, Lipitor 80 mg, fluoxetine, primidone 50 mg twice daily, levothyroxine and metformin. Patient does not take any antiplatelet medication at home. Patient states the numbness of the right arm has resolved, but her slurred speech has persisted. Patient has history of diabetes for long time. Also has hypertension. Denies any tobacco use or alcohol. No previous history of strokes or TIA. Patient states about 3 days prior to her stroke, she did crack her neck. She denies any headache at this time. Patient has history of essential tremor, as tremors bother her when she is eating, or drawing. Review of Systems All pertinent positive and negative review of systems mentioned in the HPI. Otherwise unremarkable. Past Medical History Past Medical History: Asthma, Diabetes Mellitus, Hyperlipidemia, Hypertension Additional Past Medical History / Comment(s): ON ANTIBIOTICS FOR UTI FROM 10/24/16 History of Any Multi-Drug Resistant Organisms: None Reported Past Surgical History: Cholecystectomy, Hernia Repair, Hysterectomy Additional Past Surgical History / Comment(s): hiatal hernia Past Anesthesia/Blood Transfusion Reactions: Motion Sickness Past Psychological History: Anxiety, Depression, Panic Disorder Smoking Status: Never smoker Past Alcohol Use History: None Reported Additional Past Alcohol Use History / Comment(s): pt does not use etoh or illicit drugs Past Drug Use History: None Reported - Past Family History Father Family Medical History: Cancer Medications and Allergies Home Medications Medication Instructions Recorded Confirmed Type ARIPiprazole [Abilify] 10 mg PO DAILY 11/07/24 11/07/24 History Atorvastatin [Lipitor] 80 mg PO HS 11/07/24 11/07/24 History FLUoxetine HCL [PROzac] 20 mg PO DAILY 11/07/24 11/07/24 History Levothyroxine Sodium [Synthroid] 88 mcg PO DAILY 11/07/24 11/07/24 History Primidone 50 mg PO BID 11/07/24 11/07/24 History amLODIPine [Norvasc] 10 mg PO DAILY 11/07/24 11/07/24 History metFORMIN HCL [Glucophage] 500 mg PO DAILY 11/07/24 11/07/24 History Allergies Allergy/AdvReac Type Severity Reaction Status Date / Time ciprofloxacin HCl Allergy PT CAN'T Verified 11/07/24 13:28 [From Cipro] REMEMBER REACTION prednisone Allergy PT CAN'T Verified 11/07/24 13:28 REMEMBER REACTION sulfamethoxazole Allergy PT CAN'T Verified 11/07/24 13:28 [From Bactrim] REMEMBER REACTION trimethoprim [From Bactrim] Allergy PT CAN'T Verified 11/07/24 13:28 REMEMBER REACTION Physical Examination - Vital Signs Vital Signs: Vital Signs Temp Pulse Pulse Resp BP BP Pulse Ox 11/08/24 08:00 97.7 F 72 16 126/79 99 11/08/24 04:00 66 14 124/68 98 11/08/24 02:00 78 16 11/08/24 00:00 97.7 F 67 14 123/76 98 11/07/24 20:00 78 16 125/76 99 11/07/24 18:37 98.8 F 76 14 150/83 99 11/07/24 18:15 81 18 153/85 99 11/07/24 16:09 76 18 140/79 99 11/07/24 14:38 78 20 144/80 100 Intake and Output 11/07/24 11/08/24 11/08/24 22:59 06:59 14:59 Intake Total 360 Output Total 400 600 Balance -40 -600 Intake: Oral 360 Output: Urine 400 600 Other: # Voids 1 2 Weight 69.853 kg 64.8 kg Patient is a middle-aged female, in no acute distress. Patient is alert awake oriented to time place and person. Speech is mildly slurred/dysarthric and language functions are normal. Patient can name and repeat very well. Attention, concentration and fund of knowledge is adequate. On cranial nerve examination, pupils are equal, round and reacting to light, visual puentes are full on confrontation, with no neglect on double simultaneous stimulation. Extraocular muscles are intact with no nystagmus. Face is grossly symmetric, at rest and with active testing, there is very subtle right-sided asymmetry if at all. Her tongue protrudes to the midline. Palatal elevation and sensation normal, hearing and shoulder shrug normal, facial sensation normal. On muscle strength testing, there is no pronator drift and the strength is normal in arms and legs distally and proximally. Deep tendon reflexes are symmetric 2 at the biceps, 2 brachioradialis, 2 at the knees, 1 ankles and plantars downgoing bilaterally. Sensory to touch is equal with no neglect on double simultaneous stimulation. Cerebellar function showed no ataxia for [id number] testing. No dysdiadochokinesia. No ataxia for [id number] testing on either side. Tone and bulk of muscles normal. No tremors of outstretched hands. Gait deferred.. On general examination, there is no carotid bruit or murmur, S1-S2 audible. Chest is clear on consultation. Abdomen is soft nontender. No organomegaly, bowel sounds present. Peripheral pulses are present. No peripheral edema. Results - Laboratory Findings CBC and BMP: 11/07/24 12:01 11/07/24 12:01 Abnormal Lab Findings: Abnormal Labs 11/07/24 11/07/24 11/07/24 12:01 12:01 12:01 WBC 11.96 H Plt Count 469 H Neutrophils # 8.29 H PT 9.6 L APTT 21.4 L Glucose 112 H Calcium 12.1 H Alkaline Phosphatase 144 H Total Protein 8.4 H Albumin 5.1 H Triglycerides VLDL Cholesterol, Calc 11/07/24 12:01 WBC Plt Count Neutrophils # PT APTT Glucose Calcium Alkaline Phosphatase Total Protein Albumin Triglycerides 259.00 H VLDL Cholesterol, Calc 51.80 H Assessment and Plan Assessment: * Probable acute ischemic stroke manifesting with slurred speech, and right arm numbness. Current NIH stroke scale is 1 related to dysarthria. The right arm numbness has resolved. * Hypertension * Diabetes * Hyperlipidemia * History of anxiety disorder/depression * Benign tremors, on primidone Plan: Patient will undergo workup for CVA. Current NIH stroke scale is 1. CVA possibly from lacunar stroke from diabetes. MRI of the brain without contrast, evaluate for acute CVA 2-D echo revealed LVEF 55 to 60%. Normal left ventricular wall motion. Normal right atrial size. No right atrial thrombus. Negative agitated saline bubble study for [id number] shunt. Normal left atrial size. No valvular abnormalities. Carotid Doppler, revealed no hemodynamically significant stenosis in either ICA. Antegrade flow in both vertebral arteries. Fasting a.m. lipid panel cholesterol 177, LDL 66, HDL 58, triglycerides 259. Continue Lipitor 80 mg daily (home dose). Hemoglobin A1c Permissive hypertension for next 24-48 hours Patient started on aspirin 325 mg daily. We will place on dual antiplatelet therapy for 21 days and then stop Plavix. Neuro checks every 4 hours. Telemetry monitoring rule out any arrhythmia PT, OT, speech therapy DVT prophylaxis: Heparin 5000 units subcu every 8 hours Neurology will continue to follow. Thank you for the consult.
[2024-11-08] MEDS: CLOPIDOGREL 75 MG TAB PO SCH (13:10)
[2024-11-08 16:33] LABS: Glucose,Whole Blood 89 mg/dL (70-110)
[2024-11-08 19:58] LABS: Glucose,Whole Blood 109 mg/dL (70-110)
[2024-11-08] MEDS: FAMOTIDINE 20 MG TAB PO SCH (20:24)
[2024-11-08] MEDS: HEPARIN SODIUM,PORCINE 5,000 UNIT/ML 1 ML VIAL SQ SCH (20:24)
[2024-11-08] MEDS ORDERED: FAMOTIDINE 20 MG/2 ML VIAL IV SCH (21:00)
[2024-11-09 06:09] LABS: Glucose,Whole Blood 103 mg/dL (70-110)
[2024-11-09 11:45] LABS: Glucose,Whole Blood 75 mg/dL (70-110)
[2024-11-09 16:34] LABS: Glucose,Whole Blood 122 mg/dL (70-110)
[2024-11-09 19:52] LABS: Glucose,Whole Blood 109 mg/dL (70-110)
--- NOTE | 2024-11-09 22:21 | P.PN ---
Subjective This is a pleasant 59 years old female with past medical history of multiple medical problems as below Presents because of slurred speech and right arm and right leg weakness that started yesterday and there was concerns of right facial droop. Today patient sitting up in chair fully awake and oriented, slightly lethargic she is has mild to moderate slurred speech patient states is improved to some extent, patient cannot communicate and tell what she wants. Also she states that her right arm and leg weakness are improved to great extent but not 100% compared to admission Other than that she denies any specific GI/ symptoms. No chest pain or dyspnea. She denies smoking alcohol or illicit drugs. She is afebrile blood pressure stable Labs showing mild leukocytosis 11.9 well other labs are unremarkable CBC, BMP, LFT, INR. Ejection fraction is [address] 60%. CT of the brain is negative for acute process EKG showing sinus rhythm at 67 with no significant axis ST's T changes Chest x-ray showed no acute cardiopulmonary process Carotid duplex showed minimal atherosclerotic disease Patient currently started on aspirin 325 mg and normal saline 100 mL/h. 11/09 Patient showing partial improvement in her slurred speech and right hemiparesis both upper and lower extremities Patient started also on Plavix on top of her aspirin 325 mg echocardiogram: Showed ejection fraction 55 to 60% She is on Normal Saline 100 mL/h we will lower the rate to 50 mL/h Review of systems CONSTITUTIONAL: No fever, no malaise, no fatigue. HEENT: No recent visual problems or hearing problems. Denied any sore throat. CARDIOVASCULAR: No orthopnea, PND, no palpitations, no syncope. PULMONARY: No shortness of breath, no cough, no hemoptysis. GENITOURINARY: Denies any burning micturition, frequency, or urgency. MUSCULOSKELETAL/RHEUMATOLOGICAL: Denies any joint pain, swelling, or any muscle pain. ENDOCRINE: Denies any polyuria or polydipsia. Active Medications Generic Name Dose Route Start Last Admin Trade Name Freq PRN Reason Stop Dose Admin Amlodipine Besylate 10 mg 11/08/24 09:00 11/09/24 08:03 Amlodipine 10 Mg Tab PO 10 mg DAILY MARQUISE Administration Aripiprazole 10 mg 11/08/24 09:00 11/09/24 08:03 Aripiprazole 10 Mg Tab PO 10 mg DAILY MARQUISE Administration Aspirin 325 mg 11/08/24 09:00 11/09/24 08:03 Aspirin 325 Mg Tab PO 325 mg DAILY MARQUISE Administration Atorvastatin Calcium 80 mg 11/07/24 21:00 11/09/24 21:25 Atorvastatin 80 Mg Tab PO 80 mg HS MARQUISE Administration Clopidogrel Bisulfate 75 mg 11/08/24 13:00 11/09/24 08:03 Clopidogrel 75 Mg Tab PO 11/29/24 12:59 75 mg DAILY MARQUISE Administration Famotidine 20 mg 11/08/24 21:00 11/09/24 21:24 Famotidine 20 Mg Tab PO 20 mg BID MARQUISE Administration Fluoxetine HCl 20 mg 11/08/24 09:00 11/09/24 08:03 Fluoxetine Hcl 20 Mg Cap PO 20 mg DAILY MARQUISE Administration Heparin Sodium (Porcine) 5,000 unit 11/08/24 21:00 11/09/24 21:24 Heparin Sodium,Porcine 5,000 Unit/Ml 1 Ml Vial SQ 5,000 unit Q12HR MARQUISE Administration Sodium Chloride 1,000 mls @ 100 mls/hr 11/07/24 13:30 11/09/24 09:58 Saline 0.9% IV Not Given .Q10H MARQUISE Levothyroxine Sodium 88 mcg 11/08/24 06:30 11/09/24 06:35 Levothyroxine 88 Mcg Tab PO 88 mcg 0630 MARQUISE Administration Metformin HCl 500 mg 11/08/24 09:00 11/09/24 08:03 Metformin 500 Mg Tab PO 500 mg DAILY MARQUISE Administration Primidone 50 mg 11/07/24 21:00 11/09/24 21:25 Primidone 50 Mg Tab PO 50 mg BID MARQUISE Administration Objective - Vital Signs Vital signs: Vital Signs Temp 97.3 F L 11/08/24 20:00 Pulse 69 11/09/24 07:59 Resp 16 11/09/24 07:59 BP 109/67 11/09/24 07:59 Pulse Ox 99 11/09/24 07:59 FiO2 Intake & Output 11/08/24 11/09/24 11/09/24 18:59 06:59 18:59 Intake Total 240 237 Balance 240 237 Weight 64.6 kg Intake: Oral 240 237 Other: # Voids 1 - Exam GENERAL: The patient is alert and oriented x3, not in any acute distress. Well developed, well nourished. HEENT: Pupils are round and equally reacting to light. EOMI. No scleral icterus. No conjunctival pallor. Normocephalic, atraumatic. No pharyngeal erythema. No thyromegaly. CARDIOVASCULAR: S1 and S2 present. No murmurs, rubs, or gallops. PULMONARY: Chest is clear to auscultation, no wheezing , no crackles. ABDOMEN: Soft, nontender, nondistended, normoactive bowel sounds. No palpable organomegaly. MUSCULOSKELETAL: No joint swelling or deformity. EXTREMITIES: No cyanosis, clubbing, or pedal edema. -NEUROLOGICAL: Gross neurological examination did not reveal any focal deficits. Mild slurred speech, mild right hemiparesis SKIN: No rashes. no petechiae. - Labs CBC & Chem 7: 11/07/24 12:01 11/07/24 12:01 Assessment and Plan Assessment: Acute CVA with slurred speech and right hemiparesis Diabetes mellitus Hypertension Hyperlipidemia Leukocytosis Plan: Continue with aspirin and Plavix added as well as statin Continue gentle hydration Neurology team consult Labs and medication were reviewed.. Continue same treatment. Continue with symptomatic treatment. Resume home medication. Monitor lytes and vitals. DVT and GI prophylaxis. Further recommendations depends on the clinical course of the patient DVT prophylaxis: Subcutaneous heparin GI Prophylaxis: Pepcid PT/OT: Pending Prognosis is guarded
[2024-11-09] MEDS: SODIUM CHLORIDE 0.9% 1,000 ML IV SCH (23:39)
--- NOTE | 2024-11-10 02:18 | P.PN ---
Subjective Progress Note Date: 11/09/24 Patient was seen for follow-up. Patient states her speech is better. No new concerns. Objective - Vital Signs Vital signs: Vital Signs Temp 97.6 F 11/09/24 13:34 Pulse 68 11/09/24 12:00 Resp 18 11/09/24 13:34 BP 116/76 11/09/24 12:00 Pulse Ox 98 11/09/24 13:34 FiO2 Intake & Output 11/08/24 11/09/24 11/09/24 18:59 06:59 18:59 Intake Total 240 237 Balance 240 237 Weight 64.6 kg Intake: Oral 240 237 Other: # Voids 1 - Exam Examination unchanged. - Labs CBC & Chem 7: 11/07/24 12:01 11/07/24 12:01 Assessment and Plan Assessment: * Probable acute ischemic stroke manifesting with slurred speech, and right arm numbness. Current NIH stroke scale is 1 related to dysarthria. The right arm numbness has resolved. * Hypertension * Diabetes * Hyperlipidemia * History of anxiety disorder/depression * Benign tremors, on primidone Plan: Patient will undergo workup for CVA. Current NIH stroke scale is 1. CVA possib ly from lacunar stroke from diabetes. Patient was not a candidate for TNK MRI of the brain without contrast, evaluate for acute CVA 2-D echo revealed LVEF 55 to 60%. Normal left ventricular wall motion. Normal right atrial size. No right atrial thrombus. Negative agitated saline bubble study for [id number] shunt. Normal left atrial size. No valvular abnormalities. Carotid Doppler, revealed no hemodynamically significant stenosis in either ICA. Antegrade flow in both vertebral arteries. Fasting a.m. lipid panel cholesterol 177, LDL 66, HDL 58, triglycerides 259. Continue Lipitor 80 mg daily (home dose). Hemoglobin A1c 6.0 Permissive hypertension for next 24-48 hours Patient started on aspirin 325 mg daily. We will place on dual antiplatelet therapy for 21 days and then stop Plavix. Neuro checks every 4 hours. Telemetry monitoring rule out any arrhythmia PT, OT, speech therapy DVT prophylaxis: Heparin 5000 units subcu every [address] Basil Haley to resume neurology service in the morning.
[2024-11-10 06:06] LABS: Glucose,Whole Blood 84 mg/dL (70-110)
[2024-11-10 06:56] LABS: Basophils # (A) 0.05 10*3/uL (0.00-0.10); Basophils % (A) 0.5 %; Eosinophils # (A) 0.17 10*3/uL (0.04-0.35); Eosinophils % (A) 1.8 %; HCT 37.8 % (37.2-46.3); HGB 12.2 g/dL (12.0-15.0); Lymphocytes # (A) 3.37 10*3/uL (0.90-5.00); Lymphocytes % (A) 36.4 %; MCH 29.2 pg (27.0-32.0); MCHC 32.3 g/dL (32.0-37.0); MCV 90.4 fL (80.0-97.0); Mean Platelet Volume 9.9 fL (9.5-12.2); Monocytes # (A) 0.67 10*3/uL (0.20-1.00); Monocytes % (A) 7.2 %; Neutrophils # (A) 4.96 10*3/uL (1.80-7.70); Neutrophils % (A) 53.8 %; Platelet Count 446 10*3/uL (140-440); RBC 4.18 10*6/uL (4.10-5.20); RDW 12.7 % (11.5-14.5); WBC 9.25 10*3/uL (4.50-10.00)
[2024-11-10 07:06] LABS: African American GFR (CKD) 68 (>60 ml/min/1.73 sqM); Anion Gap 9 mmol/L; Blood Urea Nitrogen 18 mg/dL (7-17); Calcium 11.9 mg/dL (8.4-10.2); Carbon Dioxide 26 mmol/L (22-30); Chloride 104 mmol/L (98-107); Glucose 97 mg/dL (74-99); Non-African American GFR(CKD) 59 (>60 ml/min/1.73 sqM); Potassium 4.4 mmol/L (3.5-5.1); Sodium 139 mmol/L (137-145)
[2024-11-10 10:06] VITALS: TEMP 97.8
[2024-11-10 11:28] LABS: Glucose,Whole Blood 83 mg/dL (70-110)
[2024-11-10 12:00] VITALS: BP 130/84; PULSE 71; RESP 18
--- NOTE | 2024-11-10 14:28 | MR ---
INDICATION: Patient age:Female; 59 years old; Reason for study: Acute CVA; PH[facility]. COMPARISON: CT brain 11/07/2024, 11/25/2015, 05/20/2015. TECHNIQUE: Multi planar, multi sequence imaging was performed through the brain without administratio n of intravenous contrast. FINDINGS: The pierre-white junctions, ventricular system, basal cisterns appear unremarkable. Age-appropriate cer ebral parenchymal volume. There is a region of restricted diffusion within the left marcelo radiata an d caudate nucleus. Remote lacunar infarcts within the left marcelo radiata and caudate nucleus. Intrac ranial arterial flow voids are maintained. Midline structures show no abnormality. Patchy and conflue nt areas of high T2/FLAIR signal intensity are seen within the periventricular and subcortical white matter. The susceptibility weighted images do not reveal any evidence for micro-hemorrhage. Anterior falx calcification. The bone marrow signal is within normal limits. The paranasal sinuses are unremarkable. Bilateral ap hakia. IMPRESSION: 1. Acute/subacute ischemia involving the left marcelo radiata and caudate nucleus. Additional remote l acunar infarcts within the left marcelo radiata and caudate nucleus. 2. Moderate nonspecific white matter changes, likely related to small vessel ischemic disease. Demyel inating disease, chronic migraines, vasculitis, Lyme disease are other considerations. A [place] level critical message alert has been initiated for Dale Lamar MD via the [employer] Critical Results System on 11/10/2024 2:25 PM. This message alert has been sent to Dale Lamar MD via the preferences provided by the clinician for the receipt of Radiology Critical Findi ngs. Message ID [id number]. [facility], , 11/10/2024 2:25 PM
--- NOTE | 2024-11-10 15:02 | P.PN ---
Subjective Progress Note Date: 11/10/24 I am seeing the patient for the first time during this hospital admission. Please refer to Dr. Mantilla's note for further details. Seems the patient has strokelike symptoms and had speech difficulty and right-sided weakness. Seems the patient had dysarthria. As well as had numbness on the right arm which has resolved. Seems that her speech is getting better but not completely resolved and continues to have some weakness over the right side. Objective - Vital Signs Vital signs: Vital Signs Temp 97.8 F 11/10/24 09:25 Pulse 71 11/10/24 11:59 Resp 18 11/10/24 11:59 BP 130/84 11/10/24 11:59 Pulse Ox 99 11/10/24 11:59 FiO2 Intake & Output 11/09/24 11/10/24 11/10/24 18:59 06:59 18:59 Intake Total 237 240 Balance 237 240 Weight 65.1 kg Intake: Oral 237 240 Other: # Voids 1 - Exam General: Patient is sitting up in bed and is not in acute distress Neuro: Patient is awake alert oriented to self and place. Patient is following simple commands. Subtle word finding difficulty. Pupils are round equal reactive to light. The pupils are round 3 mm. Visual puentes are full to confrontation. Extraocular was intact no nystagmus. Patient has right nasolabial flattening. Has very mild dysarthria. Motor: Strength over the right upper and lower is 4+. Otherwise left side is 5 out of 5 Cerebellar is normal [id number] bilaterally - Labs CBC & Chem 7: 11/10/24 05:37 11/10/24 05:37 Labs: Abnormal Lab Results - Last 24 Hours (Table) 11/07/24 11/09/24 11/10/24 Range/Units 14:45 16:32 05:37 Plt Count 446 H (140-440) 10*3/uL BUN (7-17) mg/dL Creatinine (0.52-1.04) mg/dL POC Glucose (mg/dL) 122 H (70-110) mg/dL Calcium (8.4-10.2) mg/dL Primidone 2.0 L (4-12) ug/mL 11/10/24 Range/Units 05:37 Plt Count (140-440) 10*3/uL BUN 18 H (7-17) mg/dL Creatinine 1.06 H (0.52-1.04) mg/dL POC Glucose (mg/dL) (70-110) mg/dL Calcium 11.9 H (8.4-10.2) mg/dL Primidone (4-12) ug/mL Assessment and Plan Assessment: * Likely acute ischemic stroke manifesting with slurred speech, and right arm numbness. Current NIH stroke scale is 1 related to dysarthria. The right arm numbness has resolved. * Hypertension * Diabetes * Hyperlipidemia * History of anxiety disorder/depression * Benign tremors, on primidone Plan: MRI of the brain without contrast, evaluate for acute CVA: pending official report but appears patient had acute ischemic stroke over the left basal/ganglia/caudate. 2-D echo revealed LVEF 55 to 60%. Normal left ventricular wall motion. Normal right atrial size. No right atrial thrombus. Negative agitated saline bubble study for lryiy-su-[id number] shunt. Normal left atrial size. No valvular abnor malities. Carotid Doppler, revealed no hemodynamically significant stenosis in either ICA. Antegrade flow in both vertebral arteries. Fasting a.m. lipid panel cholesterol 177, LDL 66, HDL 58, triglycerides 259. Continue Lipitor 80 mg daily (home dose). Hemoglobin A1c 6.0 Normotensive blood pressure. Patient started on aspirin 325 mg daily[address] will place on dual antiplatelet therapy for 21 days and then stop Plavix. Neuro checks every 4 hours. Telemetry monitoring rule out any arrhythmia. Recommend 30 days event monitor. PT, OT, speech therapy DVT prophylaxis: Heparin 5000 units subcu every 8 hours Upon discharge, recommend patient to follow-up with neurologist as outpatient within 2-3 weeks. The plan is discussed with patient, her Guardian via phone and her nurse. If MRI Brain confirms findings as stated above no additional work-up, other than attempting to place holter monitor. Time with Patient: Less than 30
--- NOTE | 2024-11-12 16:36 | DS ---
DISCHARGE SUMMARY CHIEF COMPLAINT: Right upper extremity weakness and expressive aphasia. HISTORY OF PRESENT ILLNESS AND PHYSICAL EXAMINATION: Details of this lady's history and physical can be found in the initial workup. LABORATORY STUDIES: While she is in the hospital, she had laboratory studies, details of which can be found in the laboratory section of her chart. COURSE IN THE HOSPITAL: After admission, she was placed on bedrest, started on intravenous fluids and frequent monitoring of her neurologic status and vital signs. Her speech seemed to improve initially, then it was thought it might have gotten a little bit worse. Her right upper extremity weakness improved. All of her studies were unremarkable. She was doing well. It was felt that she could go home on the and she will be followed up in several days. She will go home on Plavix and aspirin. FINAL DIAGNOSIS: Left-sided cerebrovascular accident with right upper extremity monoparesis and expressive aphasia. OPERATIONS: None. CONSULTATION: Neurology. She is improved. MMLINCOLN / ULICES: [id number] /
--- NOTE | 2024-11-12 16:36 | PN ---
PROGRESS NOTE DATE OF SERVICE: 11/09/2024 CHIEF COMPLAINT: Left-sided CVA. HISTORY OF PRESENT ILLNESS: This lady indicates that she is doing well, but her speech seems to be getting worse. Her right arm strength may be getting a little bit better. PHYSICAL EXAMINATION: VITAL SIGNS: Normal. CHEST: Clear. CARDIAC: Normal. IMPRESSION: Left-sided cerebrovascular accident with right upper extremity weakness and expressive aphasia. PLAN: Continue rehab. She will require speech therapy after discharge. MMLINCOLN / LEIGHTONN: [id number] /
--- NOTE | 2024-11-12 16:36 | HP ---
HISTORY AND PHYSICAL CHIEF COMPLAINT: Difficulty speaking and weakness in the right arm. HISTORY OF PRESENT ILLNESS: This lady woke up in the morning with some weakness in the right arm and some difficulty speaking. She had no headache. She had no cranial nerve symptoms including diplopia, change in vision or hearing, etc. Right leg was not involved. She came to the emergency room where studies in the emergency room were normal, but she clearly has a picture compatible with CVA. She has never had similar symptoms. She has otherwise been quite healthy other than having some problems with depression. She does not have a history of diabetes. She has had hypertension in the past. REVIEW OF SYSTEMS: Otherwise unremarkable. She did not lose consciousness. She did not lose bladder control. Past medical history, family history, personal and social histories revealed that she is allergic to quinolones, buspirone, sulfa and cannot take prednisone by history. MEDICATIONS: She is on, 1. Metformin. 2. Amlodipine. 3. Atorvastatin. 4. Levothyroxine. Her history is otherwise unremarkable, noncontributory. PHYSICAL EXAMINATION: VITAL SIGNS: Normal. HEAD, EARS, EYES, NOSE, MOUTH AND THROAT: Normal. Pupils are equal and round. Gaze seems conjugate. NECK: Supple. Carotids are normal. CHEST: Clear. CARDIAC: Reveals a grade 1/2 systolic murmur that had not been heard before and she was not aware of. ABDOMEN: Soft and nontender. EXTREMITIES: Normal. NEUROLOGIC: She is awake and alert, but was having a little difficulty speaking. She definitely had weakness of about 4/6 on the right. Left side is normal. DIAGNOSES: She is admitted to the hospital diagnoses, 1. Left-sided cerebrovascular accident in right-handed patient. 2. History of hypertension. 3. Cardiac murmur. PLAN: 1. Bed rest. 2. IV fluids. 3. Frequent monitoring of her neurologic status and vital signs. 4. Consult Neurology. 5. Echocardiogram. MMODL / IJN: [id number] /
== END 2024-11-10 15:51 | disposition home or self-care (01) | DRG 45 ==
LOC: EC 11:45 → 3SCARD 13:16 → OBSVTOIN 13:17 → 3SCARD 17:56
PROVIDERS: ADMIT Family Medicine; ATTEND Family Medicine
DX: I63.9 Cerebral infarction, unspecified (principal); I10 Essential (primary) hypertension; F32.A Depression, unspecified; F41.0 Panic disorder [episodic paroxysmal anxiety]; G25.0 Essential tremor; G81.91 Hemiplegia, unspecified affecting right dominant side; K44.9 Diaphragmatic hernia without obstruction or gangrene; R47.1 Dysarthria and anarthria; R29.701 NIHSS score 1; R29.810 Facial weakness; D72.829 Elevated white blood cell count, unspecified; E11.9 Type 2 diabetes mellitus without complications; E78.5 Hyperlipidemia, unspecified; J45.909 Unspecified asthma, uncomplicated; Z79.84 Long term (current) use of oral hypoglycemic drugs; Z79.890 Hormone replacement therapy; Z79.899 Other long term (current) drug therapy; Z87.440 Personal history of urinary (tract) infections
CPT/HCPCS: 36415; 70450; 70551; 71046; 80048; 80053; 80061; 80188; 82550; 83036; 85025; 85610; 85730; 93005; 93270; 93306; 93880; 99285